=== PATIENT | female | born 1940 | race Caucasian/White ===

== ENCOUNTER 2020-01-29 13:24 | Outpatient (REF) | payer MEDICARE, SELFPAY ==
--- NOTE | 2020-01-29 13:46 | XR_ITS ---
EXAMINATION: XR CHEST CLINICAL INFORMATION: Dizziness and giddiness COMPARISON: None TECHNIQUE: 2 views of the chest were obtained. FINDINGS: The lungs are hyperexpanded. There is no focal consolidation, edema, or effusion. No pneumothorax. The cardiomediastinal silhouette is within normal limits. No acute osseous abnormality. IMPRESSION: Hyperexpanded, clear lungs.
[2020-01-29 14:54] LABS: MANUAL DIFF FLAG NO
[2020-01-29 14:58] LABS: Basophils Percent Auto 0.3 % (0-2); Eosinophils Percent Auto 0.1 % (0-4); Hematocrit 38.9 % (37-47); Hemoglobin 12.6 g/dl (12.0-16.0); Imm Gran Abs Auto 0.04 X10*3/uL (0.00-0.03); Imm Gran Pct Auto 0.4 % (0.0-0.4); Lymphocytes Percent Auto 10.2 % (20-40); Mean Corpuscular HGB Conc 32.4 g/dl (31.0-35.0); Mean Corpuscular Hemoglobin 29.1 pg (27.0-33.0); Mean Corpuscular Volume 89.8 fL (80-98); Mean Platelet Volume 10.8 fL (9.4-12.3); Monocytes Absolute Auto 0.5 X10*3/uL (0.1-1.2); Monocytes Percent Auto 5.7 % (2-11); Neutrophils Absolute Auto 7.8 X10*3/uL (2.0-8.3); Neutrophils Percent Auto 83.3 % (45-73); Platelet Count 246 X10*3/uL (160-400); Red Blood Count 4.33 X10*6/uL (4.20-5.50); Red Cell Distribution Width 12.7 % (11.0-16.0); White Blood Count 9.4 X10*3/uL (4.8-10.8)
[2020-01-29 15:48] LABS: TSH reflex Free T4 0.37 mIU/mL (0.32-4.0)
== END 2020-01-29 13:25 | disposition home or self-care (01) ==
LOC: HO.LAB 13:24
PROVIDERS: PCP Internal Medicine; Visit Provider Family Medicine
DX: R42 Dizziness and giddiness (principal)
CPT/HCPCS: 36415; 71046; 84443; 85025

== ENCOUNTER 2020-02-04 10:36 | Emergency (ER) | payer MEDICARE, SELFPAY ==
--- NOTE | 2020-02-04 | ECG_ITS ---
Test Reason : PALPITATIONS Blood Pressure : / mmHG Vent. Rate : 065 BPM Atrial Rate : 065 BPM P-R Int : 184 ms QRS Dur : 084 ms QT Int : 390 ms P-R-T Axes : 062 -33 058 degrees QTc Int : 405 ms Normal sinus rhythm Left axis deviation Otherwise normal ECG When compared with ECG of 15-NOV-2017 10:43, No significant change was found Referred By: Shayy Nguyen Electronically Signed By:NADEEM JUAN MD
[2020-02-04 10:45] VITALS: BP 131/55; PULSE 77; RESP 15; O2SAT 97; BMI 22.9
--- NOTE | 2020-02-04 11:11 | ED.ARRPALP ---
HPI - Arrhythmia/Palpitations General Chief Complaint: Arrhythmia/Palpitations Stated Complaint: heart palpitations Time Seen by Provider: 02/04/20 10:48 Source: patient Mode of arrival: ambulatory Limitations: no limitations History of Present Illness HPI narrative: 79 y/o female with history of palpitations dating back to 2018 s/p Holter monitor at that time and was diagnosed with PVC's, hx of anxiety on PRN ativan who presents with intermittent palpitations and episodic lightheadedness and LE weakness for the last 4 days. She has had these symptoms several times in the past. She recently saw her PCP at the beginning of the month and had a normal EKG and blood work. She states it feels like her heart is beating very fast at times. She feels lightheaded when she stands up too fast. She denies caffeine intake. She denies drugs or alcohol. She denies chest pain, SOB. Related Data Allergies Allergy/AdvReac Type Severity Reaction Status Date / Time No Known Allergies Allergy Unverified 01/01/20 18:27 Review of Systems Review of Systems: Constitutional: No Fever, No Chills ENT/Mouth: No sore throat, No Rhinorrhea, No Swallowing Difficulty Eyes: No Eye Pain, No Swelling, No Redness Cardiovascular: No Chest Pain, No SOB, No Orthopnea, No Edema, +palpitations Respiratory: No Cough, No Sputum, No Wheezing, No dyspnea Gastrointestinal: No Nausea, No Vomiting, No Diarrhea, No abdominal Pain, No Hematochezia, No Melena Genitourinary: No Dysuria, No Urinary Frequency, No Hematuria Musculoskeletal: No joint pain, No Myalgias Skin: No Skin Lesions, No rash Neuro: + LE Weakness, No Numbness, No Dizziness, No Headache Psych: + Anxiety/Panic, No Depression Heme/Lymph: No Bruising, No Lymphadenopathy Endocrine: No Polyuria, No Polydipsia PMFSH Past Medical History Attestation statement: The following information was validated with the patient. Medical History Breast cancer FHx: mastectomy History of palpitations Surgical History (Updated 02/04/20 @ 10:51 by Adam Schafer) H/O mastectomy Social History Social History Smoking Status: Never smoker Use of substances other than those prescribed or required for medical reasons: No Advance Directives: Yes Advance Directives Information Provided: Yes Advance Directives on File: No Physical Exam Vital Signs: Vital Signs: Vital Signs Temp Pulse Resp BP Pulse Ox 02/04/20 14:00 98.1 F 65 17 143/62 H 02/04/20 12:39 98.0 F 65 16 134/54 L 02/04/20 12:21 69 18 136/62 99 02/04/20 12:19 68 134/64 02/04/20 12:18 60 115/56 L 02/04/20 10:45 77 15 131/55 L 97 Body Mass Index 22.9 Appearance: Alert. Oriented X3. No acute distress. Eyes: Pupils equal, round and reactive to light. ENT: Pharynx normal. Neck: Normal inspection. Neck supple. CVS: Normal heart rate and rhythm. Pulses normal. Respiratory: No respiratory distress. Breath sounds normal. Abdomen: Soft and nontender. +BS x4 Skin: Skin warm and dry. Normal skin color. Normal skin turgor. No rashes. Extremities: No lower extremity edema. Neuro: Oriented X 3. No motor deficit. No sensory deficit. Course Course Course Narrative: 79 yo with history of palpitations, hx PVC's who presenting with recurrent symptoms of palpitations, weakness and lightheadedness. She had Holter monitor in 2018 showing PVC's. She is not on any cardiac medications, does not have a cardiologst. Reevaluation(s) Reevaluation #1: Orthostatic VS are negative. Reevaluation #2: Awaiting chemistry results, need to be repeated due to hemolysis. Troponin, BNP and Mg are normal. Reevaluation #3: Chemistry completed and unremarkable. No palpiations while in the ER. Her lightheadedness is gone. She has a planned Holter monitor on 02/15. Will refer to Cardiology for additional management. MDM - Arrhythmia/Palpitations Lab Data Result diagrams: 02/04/20 11:12 02/04/20 14:51 Labs: Lab Results 02/04/20 02/04/20 02/04/20 Range/Units 11:12 11:12 11:12 WBC 8.3 (4.8-10.8) X10*3/uL RBC 4.73 (4.20-5.50) X10*6/uL Hgb 13.6 (12.0-16.0) g/dl Hct 42.6 (37-47) % MCV 90.1 (80-98) fL MCH 28.8 (27.0-33.0) pg MCHC 31.9 (31.0-35.0) g/dl RDW 12.7 (11.0-16.0) % Plt Count 263 (160-400) X10*3/uL MPV 10.2 (9.4-12.3) fL Immature Gran % (Auto) 1.4 H (0.0-0.4) % Neut % (Auto) 77.1 H (45-73) % Lymph % (Auto) 13.4 L (20-40) % Dawson % (Auto) 6.6 (2-11) % Eos % (Auto) 0.7 (0-4) % Baso % (Auto) 0.8 (0-2) % Lymph # (Auto) 1.1 L (1.2-4.9) X10*3/uL Dawson # (Auto) 0.6 (0.1-1.2) X10*3/uL Eos # (Auto) 0.1 (0.0-0.4) X10*3/uL Baso # (Auto) 0.1 (0.0-0.2) X10*3/uL Abs Immat Gran (auto) 0.12 H (0.00-0.03) X10*3/uL Absolute Neuts (auto) 6.4 (2.0-8.3) X10*3/uL Absolute Nucleated RBC 0.000 (0.0-0.012) X10*3/uL Nucleated RBC % (auto) 0.0 (0.0-0.2) /100WBC Sodium (135-145) mmol/L Potassium (3.3-5.1) mmol/l Chloride (96-108) mmol/L Carbon Dioxide (22-29) mmol/L Anion Gap (12-20) BUN (9-16) mg/dL Creatinine (0.5-1.4) mg/dL Estim Creat Clear Calc Estimated GFR Random Glucose (60-115) mg/dL Calcium (8.4-10.2) mg/dL Magnesium 2.3 (1.6-2.6) mg/dL Total Bilirubin (0.0-1.0) mg/dL Direct Bilirubin (0.0-0.5) mg/dL AST (5-31) U/L ALT (0-31) U/L Alkaline Phosphatase (39-117) U/L Troponin I High Sens < 3.5 (<3.5-17.0) ng/L B-Natriuretic Peptide 24 (<100) pg/mL Total Protein (6.5-8.0) g/dL Albumin (3.5-5.0) g/dL TSH (0.32-4.0) mIU/mL 02/04/20 Range/Units 14:51 WBC (4.8-10.8) X10*3/uL RBC (4.20-5.50) X10*6/uL Hgb (12.0-16.0) g/dl Hct (37-47) % MCV (80-98) fL MCH (27.0-33.0) pg MCHC (31.0-35.0) g/dl RDW (11.0-16.0) % Plt Count (160-400) X10*3/uL MPV (9.4-12.3) fL Immature Gran % (Auto) (0.0-0.4) % Neut % (Auto) (45-73) % Lymph % (Auto) (20-40) % Dawson % (Auto) (2-11) % Eos % (Auto) (0-4) % Baso % (Auto) (0-2) % Lymph # (Auto) (1.2-4.9) X10*3/uL Dawson # (Auto) (0.1-1.2) X10*3/uL Eos # (Auto) (0.0-0.4) X10*3/uL Baso # (Auto) (0.0-0.2) X10*3/uL Abs Immat Gran (auto) (0.00-0.03) X10*3/uL Absolute Neuts (auto) (2.0-8.3) X10*3/uL Absolute Nucleated RBC (0.0-0.012) X10*3/uL Nucleated RBC % (auto) (0.0-0.2) /100WBC Sodium 133 L (135-145) mmol/L Potassium 4.5 (3.3-5.1) mmol/l Chloride 97 (96-108) mmol/L Carbon Dioxide 27 (22-29) mmol/L Anion Gap 14 (12-20) BUN 13 (9-16) mg/dL Creatinine 0.74 (0.5-1.4) mg/dL Estim Creat Clear Calc 54.5 Estimated GFR > 60 Random Glucose 140 H (60-115) mg/dL Calcium 8.9 (8.4-10.2) mg/dL Magnesium 2.3 (1.6-2.6) mg/dL Total Bilirubin 0.4 (0.0-1.0) mg/dL Direct Bilirubin 0.2 (0.0-0.5) mg/dL AST 14 (5-31) U/L ALT 13 (0-31) U/L Alkaline Phosphatase 61 (39-117) U/L Troponin I High Sens (<3.5-17.0) ng/L B-Natriuretic Peptide (<100) pg/mL Total Protein 7.1 (6.5-8.0) g/dL Albumin 4.1 (3.5-5.0) g/dL TSH 1.03 (0.32-4.0) mIU/mL ECG Data Attestation: I personally reviewed and interpreted this ECG as follows: ECG interpretation date: 02/04/20 ECG interpretation time: 11:10 Interpretation: normal sinus rhythm, HR 65, left axis deviation, normal [place] interval Discharge Plan Discharge Clinical Impression: Lightheadedness, Palpitations Patient Disposition: Home, Self-Care Instructions: Heart Palpitations (ED) Additional Instructions: Stay hydrated. Minimize caffiene intake. Follow up with your Primary Care Doctor this week. If your symptoms persist or worsen call 911 or come back to the ER for evaluation. If you develop shortness of breath or chest pain call 911 or come back to the ER for further evaluation. Referrals: Cuba Shaikh MD [Physician] - 2 days Interventions: ED Discharge Assessment Last Done: 02/04/20 15:46 Discharge Date/Time: 02/04/20 15:47
[2020-02-04 11:20] LABS: MANUAL DIFF FLAG NO
[2020-02-04 11:27] LABS: Basophils Absolute Auto 0.1 X10*3/uL (0.0-0.2); Basophils Percent Auto 0.8 % (0-2); Eosinophils Absolute Auto 0.1 X10*3/uL (0.0-0.4); Eosinophils Percent Auto 0.7 % (0-4); Hematocrit 42.6 % (37-47); Hemoglobin 13.6 g/dl (12.0-16.0); Imm Gran Abs Auto 0.12 X10*3/uL (0.00-0.03); Imm Gran Pct Auto 1.4 % (0.0-0.4); Lymphocytes Absolute Auto 1.1 X10*3/uL (1.2-4.9); Lymphocytes Percent Auto 13.4 % (20-40); Mean Corpuscular HGB Conc 31.9 g/dl (31.0-35.0); Mean Corpuscular Hemoglobin 28.8 pg (27.0-33.0); Mean Corpuscular Volume 90.1 fL (80-98); Mean Platelet Volume 10.2 fL (9.4-12.3); Monocytes Absolute Auto 0.6 X10*3/uL (0.1-1.2); Monocytes Percent Auto 6.6 % (2-11); Neutrophils Absolute Auto 6.4 X10*3/uL (2.0-8.3); Neutrophils Percent Auto 77.1 % (45-73); Platelet Count 263 X10*3/uL (160-400); Red Blood Count 4.73 X10*6/uL (4.20-5.50); Red Cell Distribution Width 12.7 % (11.0-16.0); White Blood Count 8.3 X10*3/uL (4.8-10.8)
[2020-02-04 11:44] LABS: Magnesium 2.3 mg/dL (1.6-2.6)
[2020-02-04 11:50] LABS: B Type Natriuretic Peptide 24 pg/mL (<100); Troponin-I High Sensitivity < 3.5 ng/L (<3.5-17.0)
[2020-02-04 12:18] VITALS: BP 115/56; PULSE 60
[2020-02-04 12:19] VITALS: BP 134/64; BP 136/62; PULSE 68; PULSE 69
[2020-02-04 12:21] VITALS: BP 136/62; PULSE 69; RESP 18; O2SAT 99
[2020-02-04 12:39] VITALS: BP 134/54; PULSE 65; RESP 16; TEMP 36.7
[2020-02-04 14:00] VITALS: BP 143/62; PULSE 65; RESP 17; TEMP 36.7
[2020-02-04 15:04] LABS: Alanine Aminotransferase 13 U/L (0-31); Albumin Level 4.1 g/dL (3.5-5.0); Alkaline Phosphatase 61 U/L (39-117); Anion Gap 14 (12-20); Aspartate Amino Transferase 14 U/L (5-31); Bilirubin Direct 0.2 mg/dL (0.0-0.5); Bilirubin Total 0.4 mg/dL (0.0-1.0); Blood Urea Nitrogen 13 mg/dL (9-16); Calcium 8.9 mg/dL (8.4-10.2); Carbon Dioxide 27 mmol/L (22-29); Chloride 97 mmol/L (96-108); Creatinine Clr Calc Pharmacy 54.5; Estimated Glomerular Filt Rate > 60; Glucose Random 140 mg/dL (60-115); Magnesium 2.3 mg/dL (1.6-2.6); Potassium 4.5 mmol/l (3.3-5.1); Sodium 133 mmol/L (135-145); Total Protein 7.1 g/dL (6.5-8.0)
[2020-02-04 15:24] LABS: TSH reflex Free T4 1.03 mIU/mL (0.32-4.0)
== END 2020-02-04 15:47 | disposition home or self-care (01) ==
PROVIDERS: Physician Assistant; Emergency Provider Emergency Medicine; PCP Internal Medicine
DX: R00.2 Palpitations (principal); R42 Dizziness and giddiness; Z85.3 Personal history of malignant neoplasm of breast
CPT/HCPCS: 36415; 80048; 80076; 83735; 83880; 84443; 84484; 85025; 93005; 99283; 99284

== ENCOUNTER → 2020-02-16 13:52 | Outpatient (REF) | payer MEDICARE, SELFPAY ==
--- NOTE | 2020-02-16 14:21 | ECG_ITS ---
Hook-up date: 2020-02-16 15:35:00 Duration: 24:34:00 Test Indications: DIZZINESS Medications: 218013 QRS complexes 42 Ventricular ectopics which represent <1 % of total QRS comp. 1719 Supraventricular ectopics which represent 1 % of total QRS comp. * Paced QRS complexs which represent % of total QRS comp. VENTRICULAR ECTOPY 33 Isolated 0 Bigeminal Cycles 3 Couplets 1 Runs 3 Beats in Runs 3 Beats LONGEST at 97 BPM at 13:21:17 2020-02-17 3 Beats FASTEST at 97 BPM at 13:21:17 2020-02-17 SUPRAVENTRICULAR ECTOPY 1659 Isolated 22 Couplets 4 Runs 16 Beats in Runs 7 Beats LONGEST at 115 BPM at 13:23:39 2020-02-17 3 Beats FASTEST at 116 BPM at 13:23:48 2020-02-17 HEART RATES 55 MIN at 21:33:06 2020-02-16 70 AVG 127 MAX at 08:18:07 2020-02-17 LONGEST RR 1.9840 secs at 20:46:03 2020-02-16 S-T LEVELS Channel 1 - 128 mm at 15:35:00 2020-02-16 - 128 mm at 15:35:00 2020-02-16 Channel 2 - 128 mm at 15:35:00 2020-02-16 - 128 mm at 15:35:00 2020-02-16 Channel 3 - 128 mm at 03:45:41 -- - 128 mm at 03:45:41 Underlying rhythm is sinus; Average ventricular rate 70/min; range 55-127/min; Occasional supraventricular ectopy- about 1700 over 24 Hrs; mostly isolated; longest run 7 beats; Rare ventricular ectopy; 1 run of 3 beats at 97/min; No clear correlation between patient symptoms and holter findings. Referred By: Ludwin Ovalle Overread By: JESUS SALCIDO
== END ==
LOC: HO.CARD 13:52
PROVIDERS: PCP Internal Medicine; Visit Provider Family Medicine
DX: R42 Dizziness and giddiness (principal); Z87.898 Personal history of other specified conditions
CPT/HCPCS: 93226

== ENCOUNTER 2020-08-05 07:08 | Outpatient (REF) | payer MEDICARE, SELFPAY ==
[2020-08-05 08:09] LABS: MANUAL DIFF FLAG NO
[2020-08-05 08:13] LABS: Basophils Absolute Auto 0.1 X10*3/uL (0.0-0.2); Basophils Percent Auto 1.5 % (0-2); Eosinophils Absolute Auto 0.3 X10*3/uL (0.0-0.4); Eosinophils Percent Auto 5.2 % (0-4); Hematocrit 40.6 % (37-47); Hemoglobin 13.1 g/dl (12.0-16.0); Imm Gran Abs Auto 0.02 X10*3/uL (0.00-0.03); Imm Gran Pct Auto 0.4 % (0.0-0.4); Lymphocytes Absolute Auto 1.1 X10*3/uL (1.2-4.9); Lymphocytes Percent Auto 23.2 % (20-40); Mean Corpuscular HGB Conc 32.3 g/dl (31.0-35.0); Mean Corpuscular Hemoglobin 28.6 pg (27.0-33.0); Mean Corpuscular Volume 88.6 fL (80-98); Mean Platelet Volume 10.7 fL (9.4-12.3); Monocytes Absolute Auto 0.4 X10*3/uL (0.1-1.2); Monocytes Percent Auto 7.5 % (2-11); Neutrophils Percent Auto 62.2 % (45-73); Platelet Count 219 X10*3/uL (160-400); Red Blood Count 4.58 X10*6/uL (4.20-5.50); Red Cell Distribution Width 12.6 % (11.0-16.0); White Blood Count 4.8 X10*3/uL (4.8-10.8)
[2020-08-05 08:37] LABS: Alanine Aminotransferase 13 U/L (0-31); Albumin Level 4.2 g/dL (3.5-5.0); Alkaline Phosphatase 59 U/L (39-117); Anion Gap 12 (12-20); Aspartate Amino Transferase 16 U/L (5-31); Bilirubin Total 0.9 mg/dL (0.0-1.0); Blood Urea Nitrogen 15 mg/dL (9-16); Carbon Dioxide 26 mmol/L (22-29); Chloride 102 mmol/L (96-108); Cholesterol 203 mg/dL; Estimated Glomerular Filt Rate > 60; Glucose Fasting 107 mg/dL (60-99); HDL Cholesterol 63 mg/dL; LDL Cholesterol Calculated 124 mg/dl; Potassium 4.1 mmol/L (3.3-5.1); Sodium 136 mmol/L (135-145); Total Protein 6.9 g/dL (6.5-8.0); Triglycerides 83 mg/dL
== END 2020-08-05 07:09 | disposition home or self-care (01) ==
LOC: HO.LAB 07:08
PROVIDERS: PCP Internal Medicine; Visit Provider Nurse Practitioner Family
DX: K21.9 Gastro-esophageal reflux disease without esophagitis (principal)
CPT/HCPCS: 36415; 80053; 80061; 85025

== ENCOUNTER 2021-03-21 10:35 | Outpatient (REF) | payer MEDICARE, SELFPAY ==
[2021-03-21 11:52] LABS: Hematocrit 40.1 % (37.0-47.0); Hemoglobin 12.9 g/dl (12.0-16.0); Mean Corpuscular HGB Conc 32.2 g/dl (31.0-35.0); Mean Corpuscular Hemoglobin 28.9 pg (27.0-33.0); Mean Corpuscular Volume 89.7 fL (80.0-98.0); Mean Platelet Volume 10.8 fL (9.4-12.3); Platelet Count 218 X10*3/uL (160-400); Red Blood Count 4.47 X10*6/uL (4.20-5.50); Red Cell Distribution Width 12.5 % (11.0-16.0); White Blood Count 5.2 X10*3/uL (4.8-10.8)
[2021-03-21 12:21] LABS: Lipase 42 U/L (8-78)
== END 2021-03-21 10:36 | disposition home or self-care (01) ==
LOC: HO.LAB 10:35
PROVIDERS: PCP Internal Medicine; Visit Provider Physician Assistant
DX: R10.13 Epigastric pain (principal)
CPT/HCPCS: 36415; 83690; 85027

== ENCOUNTER 2021-03-22 12:08 | Outpatient (REF) | payer MEDICARE, SELFPAY | END 2021-03-22 12:09 | disposition home or self-care (01) | LOC: HO.LNP 12:08 | PROVIDERS: Visit Provider Physician Assistant | DX: R10.13 Epigastric pain (principal) | CPT/HCPCS: 87338 ==

== ENCOUNTER 2021-05-27 15:24 | Outpatient (REF) | payer MEDICARE, SELFPAY ==
--- NOTE | ~2021-05-27 | US_ITS ---
EXAMINATION: US EXTRACRANIAL CAROTID DUPLEX, BILATERAL CLINICAL INFORMATION: Carotid bruit COMPARISON: None TECHNIQUE: Real-time ultrasound and Doppler techniques (integrating B-mode 2-D vascular images, Doppler spectral analysis and color-flow Doppler imaging) were utilized to interrogate the extracranial carotid arteries, the vertebral arteries and proximal subclavian arteries bilaterally. The degree of stenosis is determined by criteria similar to NASCET. FINDINGS: Right Side: 1. There is atherosclerotic plaque seen in the bifurcation/proximal ICA region. 2. The common carotid artery PSV proximally is 116 cm/s and distally 120 cm/s. 3. The proximal internal carotid artery velocities are 152 cm/s systolic and 26.2 cm/s diastolic. 4. The proximal external carotid artery PSV is 82.1 cm/s. 5. The vertebral artery shows antegrade flow. 6. The subclavian artery waveforms are normal. Left Side: 1. There is atherosclerotic plaque seen in the bifurcation/proximal ICA region. 2. The common carotid artery PSV proximally is 99.7 cm/s and distally 80.9 cm/s. 3. The proximal internal carotid artery velocities are 229 cm/s systolic and 56.6 cm/s diastolic. 4. The proximal external carotid artery PSV is 186 cm/s. 5. The vertebral artery shows antegrade flow. 6. The subclavian artery waveforms are normal. US/US carotid duplex BI IMPRESSION: 1. RIGHT: Minimal, non-hemodynamically significant stenosis of the proximal right internal carotid artery corresponding to a 0-49% stenosis by velocity criteria. 2. LEFT: Moderate, hemodynamically significant stenosis of the proximal left internal carotid artery corresponding to a 50-79% stenosis by velocity criteria.
== END 2021-05-27 15:25 | disposition home or self-care (01) ==
LOC: HO.US 15:24
PROVIDERS: PCP Internal Medicine; Visit Provider Physician Assistant
DX: R09.89 Other specified symptoms and signs involving the circulatory and respiratory systems (principal)
CPT/HCPCS: 93880

== ENCOUNTER 2021-08-05 07:31 | Outpatient (REF) | payer MEDICARE, SELFPAY ==
[2021-08-05 07:49] LABS: Hematocrit 40.5 % (37.0-47.0); Hemoglobin 12.9 g/dl (12.0-16.0); Mean Corpuscular HGB Conc 31.9 g/dl (31.0-35.0); Mean Corpuscular Hemoglobin 27.9 pg (27.0-33.0); Mean Corpuscular Volume 87.7 fL (80.0-98.0); Mean Platelet Volume 10.3 fL (9.4-12.3); Platelet Count 197 X10*3/uL (160-400); Red Blood Count 4.62 X10*6/uL (4.20-5.50); Red Cell Distribution Width 13.2 % (11.0-16.0); White Blood Count 4.3 X10*3/uL (4.8-10.8)
[2021-08-05 08:22] LABS: Estimated Average Glucose 103 mg/dL; Hemoglobin A1c % 5.2 %
[2021-08-05 08:27] LABS: Alanine Aminotransferase 10 U/L (0-31); Albumin Level 3.9 g/dL (3.5-5.0); Alkaline Phosphatase 59 U/L (39-117); Anion Gap 8 (12-20); Aspartate Amino Transferase 14 U/L (5-31); Bilirubin Total 0.6 mg/dL (0.0-1.0); Blood Urea Nitrogen 10 mg/dL (9-16); Carbon Dioxide 28 mmol/L (22-29); Chloride 103 mmol/L (96-108); Cholesterol 180 mg/dL; Estimated Glomerular Filt Rate > 60; Glucose Fasting 100 mg/dL (60-99); HDL Cholesterol 55 mg/dL; LDL Cholesterol Calculated 109 mg/dl; Sodium 135 mmol/L (135-145); Total Protein 6.5 g/dL (6.5-8.0); Triglycerides 84 mg/dL
== END 2021-08-05 07:32 | disposition home or self-care (01) ==
LOC: HO.LAB 07:31
PROVIDERS: PCP Internal Medicine; Visit Provider Physician Assistant
DX: Z13.1 Encounter for screening for diabetes mellitus (principal); Z13.220 Encounter for screening for lipoid disorders; I65.22 Occlusion and stenosis of left carotid artery
CPT/HCPCS: 36415; 80053; 80061; 83036; 85027

== ENCOUNTER → 2021-08-22 08:50 | Outpatient (BNVA) | payer MEDICARE, SELFPAY | PROVIDERS: PCP Internal Medicine; Visit Provider Surgery Vascular Surgery | DX: I65.23 Occlusion and stenosis of bilateral carotid arteries (principal) | CPT/HCPCS: 99202 ==

== ENCOUNTER 2021-10-20 11:20 | Outpatient (REF) | payer MEDICARE, SELFPAY ==
[2021-10-20 12:37] LABS: Hematocrit 38.2 % (37.0-47.0); Hemoglobin 12.6 g/dl (12.0-16.0); Mean Corpuscular Hemoglobin 29.4 pg (27.0-33.0); Mean Platelet Volume 10.4 fL (9.4-12.3); Platelet Count 214 X10*3/uL (160-400); Red Blood Count 4.29 X10*6/uL (4.20-5.50); Red Cell Distribution Width 13.4 % (11.0-16.0); White Blood Count 5.9 X10*3/uL (4.8-10.8)
[2021-10-20 13:25] LABS: TSH reflex Free T4 0.58 uIU/mL (0.32-4.0)
== END 2021-10-20 11:21 | disposition home or self-care (01) ==
LOC: HO.LAB 11:20
PROVIDERS: PCP Internal Medicine; Visit Provider Nurse Practitioner Family
DX: R00.2 Palpitations (principal)
CPT/HCPCS: 36415; 84443; 85027

== ENCOUNTER → 2021-10-26 07:30 | Outpatient (REF) | payer MEDICARE, SELFPAY ==
--- NOTE | 2021-10-26 07:32 | HM_ITS ---
Conclusion: 1. Patient was monitor for total period of 4 days and 23 hours 2. Baseline was normal sinus rhythm with average heart of 60 beats per minute 3. No significant pauses or bradycardia noted 4. Fourteen short episodes of symptomatic tachycardia, longest 42 beats per minute and fastest 161 beats per minute 5. Total of 696 PACs accounting for 0.14% of total beats accounting for occasional PACs 6. No patient reported events MTDD
== END ==
LOC: HO.CARD 07:30
PROVIDERS: Visit Provider Nurse Practitioner Family
DX: R00.2 Palpitations (principal)
CPT/HCPCS: 93242

== ENCOUNTER 2021-11-28 09:47 | Outpatient (REF) | payer MEDICARE, SELFPAY ==
--- NOTE | ~2021-11-28 | US_ITS ---
EXAMINATION: US EXTRACRANIAL CAROTID DUPLEX, BILATERAL CLINICAL INFORMATION: Bilateral carotid artery stenosis. COMPARISON: Carotid artery ultrasound on 05/27/2021 TECHNIQUE: Real-time ultrasound and Doppler techniques (integrating B-mode 2-D vascular images, Doppler spectral analysis and color-flow Doppler imaging) were utilized to interrogate the extracranial carotid arteries, the vertebral arteries and proximal subclavian arteries bilaterally. The degree of stenosis is determined by criteria similar to NASCET. FINDINGS: Right Side: 1. There is mild atherosclerotic plaque seen in the bifurcation/proximal ICA region. 2. The common carotid artery PSV proximally is 94 cm/s and distally 76 cm/s. 3. The proximal internal carotid artery velocities are 75 cm/s systolic and 18 cm/s diastolic. 4. The proximal external carotid artery PSV is 88 cm/s. 5. The vertebral artery shows antegrade flow. 6. The subclavian artery waveforms are normal. Left Side: 1. There is mild atherosclerotic plaque seen in the bifurcation/proximal ICA region. 2. The common carotid artery PSV proximally is 75 cm/s and distally 70 cm/s. 3. The proximal internal carotid artery velocities are 50 cm/s systolic and 15 cm/s diastolic. 4. The proximal external carotid artery PSV is 70 cm/s. 5. The vertebral artery shows antegrade flow. 6. The subclavian artery waveforms are normal. US/US carotid duplex BI IMPRESSION: 1. RIGHT: Minimal, non-hemodynamically significant stenosis of the proximal right internal carotid artery corresponding to a 0-49% stenosis by velocity criteria. This is stable from the comparison examination in May. 2. LEFT: Minimal, non-hemodynamically significant stenosis of the proximal left internal carotid artery corresponding to a 0-49% stenosis by velocity criteria. The category of disease appears decreased from the comparison in May (previously measured at 50-79% stenosis).
== END 2021-11-28 09:48 | disposition home or self-care (01) ==
LOC: HO.US 09:47
PROVIDERS: Visit Provider Surgery Vascular Surgery
DX: I65.23 Occlusion and stenosis of bilateral carotid arteries (principal)
CPT/HCPCS: 93880

== ENCOUNTER → 2021-12-01 09:52 | Outpatient (BNVA) | payer MEDICARE, SELFPAY | PROVIDERS: PCP Internal Medicine; Visit Provider Surgery Vascular Surgery | DX: I65.23 Occlusion and stenosis of bilateral carotid arteries (principal) | CPT/HCPCS: 99212 ==

== ENCOUNTER → 2022-02-24 09:54 | Outpatient (BNVA) | payer MEDICARE, SELFPAY | PROVIDERS: PCP Internal Medicine; Referring Provider Internal Medicine; Visit Provider Internal Medicine Cardiovascular Disease | DX: I47.1 Supraventricular tachycardia (principal); F41.9 Anxiety disorder, unspecified | CPT/HCPCS: 99202 ==

== ENCOUNTER → 2022-04-21 09:21 | Outpatient (REF) | payer MEDICARE, SELFPAY ==
--- NOTE | 2022-04-21 09:23 | CA_ITS ---
Transthoracic Echocardiogram Patient (Last, First, Middle): Mary Beth Jaramillo P Gender: Female Date of : 1940 Age: 81 Procedure Date: 04/21/2022 Procedure Type: Transthoracic Echocardiogram Location: OP Height: 165.1 cm Weight: 58.97 kg BSA: 1.65 m2 Heart Rate: 59 bpm BP: 145 / 75 mmHg Cremator: MI Referring MD: Leslee Torres MD Symptoms: I47.1 - Supraventricular tachycardia Study Quality: Fair ECG Rhythm: Sinus Conclusions: - The left ventricular systolic function is normal. The calculated ejection fraction is 55% by biplane method. - No obvious valvular pathology seen on this study. Findings Left Ventricle Normal left ventricular cavity size. There is normal left ventricular wall thickness. The left ventricular systolic function is normal. The calculated ejection fraction is 55% by biplane method. There is no evidence of regional wall motion abnormalities. Diastolic function is normal for age. Right Ventricle Normal right ventricular cavity size and systolic function. Atria Both atria are normal in size. Aortic Valve There is a normal trileaflet aortic valve. There is no aortic valve stenosis. There is no aortic valve regurgitation. Mitral Valve The mitral valve appears normal. There is trace mitral valve regurgitation. There is no mitral valve stenosis. Pulmonic Valve There is mild pulmonic valve regurgitation. Tricuspid Valve Normal tricuspid valve structure. There is trace tricuspid valve regurgitation. There is no evidence of pulmonary hypertension. Great Vessels The asc aorta is normal in size. Venous The inferior vena cava is normal in size and collapses greater than 50% with inspiration. Pericardium/Pleural There is no evidence of pericardial effusion. Prior Study Comparison No prior study available for comparison. Recommendations, Care & Conclusions No obvious valvular pathology seen on this study. Measurements 2D Linear Measurements IVSd: 0.74 0.6-0.9/0.6-1.0 cm LVIDd: 4.26 3.9-5.3/4.2-5.9 cm LVIDd Index: 2.58 2.4-3.2/2.2-3.1 cm/m2 LVIDs: 2.96 2.0-3.6 cm LVPWd: 0.78 0.7-1.1 cm LA Diam: 3.50 2.7-3.8/3.0-4.0 cm LAIDs Index: 2.12 1.5-2.3 cm/m2 LV Mass: 120.32 67-162/88-224 g LV Mass Index: 72.92 43-95/49-115 g/m2 LVOT Diam: 1.90 3.0+(-)1.3 cm 2D Systolic Function EF 4C: 57.00 >55% EF 2C: 53.90 >55% EF BiP: 55.00 >55% Mitral Valve MV Pk E: 0.79 MV PK A: 0.67 MV Decel Time: 188.00 E/A: 1.20 E'Lateral: 9.03 E'Medial: 7.62 E/E' Med: 10.40 E/E' Lat: 8.80 PHT: 55.00 MVA PHT: 4.00 Decel [place]: 4.22 Aortic Valve AoV Pk Fer: 0.97 AoV Mn Fer: 0.65 AoV VTI: 0.22 AoV Pk Grad: 4.00 Aov Mn Grad: 2.00 ANSELMO Cont.VTI: 2.55 LVOT LVOT Pk Fer: 0.82 LVOT Mn Fer: 0.56 LVOT VTI: 0.20 LVOT Pk Grad: 3.00 LVOT Mn Grad: 1.00 LVOT Diam: 1.90 LVOT Area: 2.84 Diastolic Function MV Pk E: 0.79 MV Pk A: 0.67 E/A: 1.20 E'Medial: 7.62 E/E' Med: 10.40 E' Laterial: 9.03 E/E' Lat: 8.80 Right Ventricle TAPSE (mm): 23.80 TVS' Fer: 12.30 Tricuspid Valve TR Pk Fer: 1.84 TR Pk Grad: 14.00 RA Press: 3.00 RVSP: 17.00 Great Vessels Aorta Sinus of Valsalva: 3.50 2.0-3.5 cm Ao Asc: 3.10 2.1-3.4 cm Pulmonary Valve PV Pk Fer: 0.87 Peak PV Grad: 3.00 Updated in Other Vendor System with Status of Final Santo Escobedo MD electronically signed on 04/22/2022 2:29:58 PM with status of Final
== END ==
LOC: HO.CARD 09:21
PROVIDERS: Visit Provider Internal Medicine
DX: I47.1 Supraventricular tachycardia (principal); R01.1 Cardiac murmur, unspecified
CPT/HCPCS: 93306

== ENCOUNTER → 2022-09-20 11:02 | Outpatient (BNVA) | payer MEDICARE, SELFPAY | PROVIDERS: PCP Internal Medicine; Referring Provider Internal Medicine; Visit Provider Internal Medicine Cardiovascular Disease | DX: I47.1 Supraventricular tachycardia (principal); I65.23 Occlusion and stenosis of bilateral carotid arteries | CPT/HCPCS: 93005; 99212 ==

== ENCOUNTER 2022-09-25 07:57 | Outpatient (REF) | payer OTHER, SELFPAY ==
[2022-09-25 08:12] LABS: MANUAL DIFF FLAG NO
[2022-09-25 08:24] LABS: Basophils Absolute Auto 0.1 X10*3/uL (0.0-0.2); Basophils Percent Auto 1.5 % (0-2); Eosinophils Absolute Auto 0.2 X10*3/uL (0.0-0.4); Eosinophils Percent Auto 4.4 % (0-4); Hematocrit 41.4 % (37.0-47.0); Hemoglobin 13.2 g/dl (12.0-16.0); Imm Gran Abs Auto 0.02 X10*3/uL (0.00-0.03); Imm Gran Pct Auto 0.4 % (0.0-0.4); Lymphocytes Absolute Auto 1.1 X10*3/uL (1.2-4.9); Lymphocytes Percent Auto 22.2 % (20-40); Mean Corpuscular HGB Conc 31.9 g/dl (31.0-35.0); Mean Corpuscular Hemoglobin 28.9 pg (27.0-33.0); Mean Corpuscular Volume 90.8 fL (80.0-98.0); Monocytes Absolute Auto 0.4 X10*3/uL (0.1-1.2); Monocytes Percent Auto 9.1 % (2-11); Neutrophils Percent Auto 62.4 % (45-73); Platelet Count 208 X10*3/uL (160-400); Red Blood Count 4.56 X10*6/uL (4.20-5.50); Red Cell Distribution Width 12.7 % (11.0-16.0); White Blood Count 4.7 X10*3/uL (4.8-10.8)
[2022-09-25 09:11] LABS: Alanine Aminotransferase 11 U/L (0-31); Albumin Level 3.9 g/dL (3.5-5.0); Alkaline Phosphatase 55 U/L (39-117); Anion Gap 9 (12-20); Aspartate Amino Transferase 16 U/L (5-31); Bilirubin Total 0.8 mg/dL (0.0-1.0); Blood Urea Nitrogen 12 mg/dL (9-16); Calcium 9.1 mg/dL (8.4-10.2); Carbon Dioxide 31 mmol/L (22-29); Chloride 101 mmol/L (96-108); Cholesterol 186 mg/dL; Estimated Glomerular Filt Rate > 60; Glucose Fasting 94 mg/dL (60-99); HDL Cholesterol 70 mg/dL; LDL Cholesterol Calculated 101 mg/dl; Potassium 4.5 mmol/L (3.3-5.1); Sodium 136 mmol/L (135-145); Total Protein 6.5 g/dL (6.5-8.0); Triglycerides 76 mg/dL
[2022-09-25 10:07] LABS: Folate 14.9 ng/mL (> or = 4.0); TSH reflex Free T4 1.35 uIU/mL (0.32-4.0); Vitamin B12 399 pg/mL (200-900); Vitamin D 25-OH Total 30.5 ng/mL (>30)
== END 2022-09-25 07:58 | disposition home or self-care (01) ==
LOC: HO.LAB 07:57
PROVIDERS: PCP Internal Medicine; Visit Provider Nurse Practitioner Family
DX: Z00.00 Encounter for general adult medical examination without abnormal findings (principal); Z13.220 Encounter for screening for lipoid disorders; Z13.1 Encounter for screening for diabetes mellitus; Z20.2 Contact with and (suspected) exposure to infections with a predominantly sexual mode of transmission; I47.1 Supraventricular tachycardia; R00.2 Palpitations; K21.9 Gastro-esophageal reflux disease without esophagitis; G43.109 Migraine with aura, not intractable, without status migrainosus
CPT/HCPCS: 36415; 80053; 80061; 82306; 82607; 82746; 84443; 85025

== ENCOUNTER 2022-09-29 10:26 | Outpatient (REF) | payer OTHER, SELFPAY ==
--- NOTE | ~2022-09-29 | MM_ITS ---
EXAMINATION: BONE DENSITOMETRY CLINICAL INDICATION: Asymptomatic menopausal state. COMPARISON: None (current study represents initial baseline exam). TECHNIQUE: Using a [employer] DXA System (software version: 13.1) manufactured by [employer], dual-energy x-ray absorptiometry was performed of the lumbar spine and left hip. The images are of good technical quality. Summary results are attached. FINDINGS: AP SPINE L1-L4: BMD 1.058 g/cm2, Z-score 1.0, T-score -1.0, normal. LEFT FEMUR, NECK: BMD 0.777 g/cm2, Z-score 0.5, T-score -1.9, osteopenia. LEFT FEMUR, TOTAL: BMD 0.782 g/cm2, Z-score 0.5, T-score -1.8, osteopenia. IDENTIFIED RISK FACTORS: Menopause, history of fracture (adult). HISTORY OF FRACTURE: Clavicle, foot. MEDICATIONS: Calcium. MM/XR DEXA axial skeleton IMPRESSION: 1. DIAGNOSIS: Osteopenia based on the lowest T-score value of -1.9 in the femoral neck applying World Health Organization criteria. 2. 10-YEAR FRACTURE RISK PREDICTION, FRAX: Major osteoporotic fracture (clinical spine, forearm, hip or shoulder) 20.1%. Hip fracture 5.8%. 3. Treatment Recommendations: NOF guidelines recommend consideration for treatment in postmenopausal women and men age 50 and older presenting with the following: -A hip or vertebral (clinical or morphometric) fracture. -T-score less than or equal to -2.5 at the femoral neck or spine after appropriate evaluation to exclude secondary causes. -Low bone mass at the hip or spine and a 10-year fracture probability by FRAX of greater than or equal to 3% for hip fracture or greater than or equal to 20% for major osteoporotic fracture based on the [place] adapted WHO algorithm. 4. Other Recommendations: All treatment decisions require clinical judgment and consideration of individual patient factors, including patient preferences, comorbidities, previous drug use, risk factors not captured in the FRAX model (e.g. frailty, falls, vitamin D deficiency, increased bone turnover, interval significant decline in bone density) and possible under or overestimation of fracture risk by FRAX. Additional medical evaluation for secondary cause of low bone mineral density may be appropriate. FUTURE SCAN RECOMMENDATION: People with diagnosed cases of osteoporosis or at high risk for fracture should have regular bone mineral density tests. For patients eligible for Medicare, routine testing is allowed once every 2 years. The testing frequency can be increased to one year for patients who have rapidly progressing disease, those who are receiving or discontinuing medical therapy to restore bone mass, or have additional risk factors.
== END 2022-09-29 10:27 | disposition home or self-care (01) ==
LOC: HO.MAMMO 10:26
PROVIDERS: PCP Internal Medicine; Visit Provider Nurse Practitioner Family
DX: Z13.820 Encounter for screening for osteoporosis (principal); Z78.0 Asymptomatic menopausal state
CPT/HCPCS: 77080

== ENCOUNTER 2023-02-13 15:48 | Outpatient (AMB) | payer OTHER, SELFPAY ==
--- NOTE | 2023-02-13 15:52 | A.OFFPC_ITS ---
Vital Signs 02/13/23 15:54 Height 5 ft 3.39 in Weight 137 lb 6 oz BMI 24.0 BP 150/70 H Blood Pressure Location Rt brachial Position Sitting Pulse 67 Pulse Source Pulse Oximeter Pulse Oximetry (%) 97 Oxygen Delivery Method Room Air Intake Visit Reasons: BLE weakness Intake Note: Patient has presented with bilateral leg weakness persisting for the past 2-3 months. The patient also reports experiencing shortness of breath (SOB) and has a history of anxiety. Additionally, the patient feels fatigued when sleeping. 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 Operator Required: No Accompanied by: Self / Same As Patient Allergies No Known Allergies Allergy (Verified 02/13/23 16:20) Medication List - Last Reconciled 02/13/23 by Hong Arellano PA-C aspirin (Adult Aspirin Regimen) 81 mg PO DAILY calcium carbonate-vitamin D3 600 mg-10 mcg (400 unit) 1 tab PO DAILY 90 days citalopram 10 mg PO DAILY 90 days lorazepam 0.5 mg PO BID PRN 30 days sumatriptan succinate 50 mg PO ONCE PRN 30 days Tobacco use date assessed: 09/20/22 Fall risk assessment: No Falls in past year Last assessed Fall Risk: 02/13/23 Dental Screening Dental Screen Date: 02/13/23 Did you have a dental visit in the last 12 months?: Yes Did you have a dental problem in the last 6 months where you did not have access to dental care?: No Was dental information given to patient?: Patient has dentist HPI BLE weakness HPI Details Patient is an 82-year-old female with a past medical history significant for generalized anxiety disorder, GERD and migraines. She reports over last 2 months having feelings of unsteadiness on her feet, fatigue, increased anxiety, some shortness of breath and lightheadedness. She has had this in the past to which it was found to be her anxiety. She has had workup with Cardiology in the past for possible cardiac etiology though all testing was negative. She reports she has been taking lorazepam on a daily basis over the last few days. She reports lorazepam does work temporarily. She continues on Celexa 10 mg as well. She did not speak with a mental health therapist at this time. [facility] Medical History Basal cell carcinoma Breast cancer Encounter for Medicare annual wellness exam FHx: mastectomy GERD (gastroesophageal reflux disease) History of palpitations Migraine headache Surgical History Basal cell carcinoma (BCC) in situ of skin History of cataract surgery H/O mastectomy Family History Father No problems noted. Mother Cancer Social History Housing: House Alcohol intake: never Patient Tobacco Use Status: Never used Tobacco e-Cigarette/Vaping Use: Never Used Second Hand Smoke Exposure: No service: No Current occupational status: retired Cognitive needs: No Hearing needs: Yes Vision needs: Yes Questionnaire Thrive Questionnaire Date Thrive assessed: 09/20/22 SINDY-7 AMB Questionnaire SINDY-7 Date SINDY - 7 assessed: 09/20/22 Source: Developed by Drs. Reed Elmore, Courtney Rodriguez, Panda Clayton and colleagues, with an educational shaniqua from [employer]. Review of Systems Const Denies headache(s) Eyes Denies loss of vision ENT Denies vertigo, Reports dizziness, Denies headache(s) and Denies sore throat Card Denies chest pain, Denies leg edema and Denies lightheadedness Resp Denies cough, Denies hemoptysis and Denies wheezing GI Denies abdominal pain, Denies melena, Denies constipation, Denies diarrhea and Denies vomiting Denies urinary frequency, Denies dysuria and Denies urinary urgency Musc Denies arthralgias, Denies joint swelling, Denies numbness and Denies tingling Neuro Denies Abnormal speech present, Denies behavioral changes, Denies vertigo, Reports dizziness, Denies headache(s), Denies loss of vision, Denies memory loss, Denies numbness and Denies tingling Psych Reports anxiety, Denies behavioral changes, Denies depression, Denies memory loss and Denies panic attacks Albaro/Lymph Denies easy bleeding and Denies easy bruising Aller/Immun Denies wheezing Physical exam (Primary Care) Vital Signs: Last Vital Signs Pulse 67 02/13/23 15:54 BP 150/70 H 02/13/23 15:54 Pulse Ox 97 02/13/23 15:54 Oxygen Delivery Method Room Air 02/13/23 15:54 BMI result Body Mass Index 24.0 Tobacco/Smoking Status: Tobacco use Status Tobacco use date assessed 09/20/22 02/13/23 15:53 Patient Tobacco Use Status Never used Tobacco 02/13/23 15:53 Tobacco use type 02/20/22 10:26 e-Cigarette/Vaping Use Never Used 02/13/23 15:53 Thrive Assessment: Date of Thrive Assessment Date Thrive assessed 09/20/22 02/13/23 15:53 Const General: healthy appearing, no acute distress, alert and awake Nutritional Appearance: well nourished Orientation/consciousness: oriented to person, oriented to place and oriented to time HENMT Ears: TM's normal bilaterally General nose exam: Normal nasal mucous membranes and turbinates present Eyes Conjunctivae: conjunctivae normal Sclerae: sclerae normal Pupils: Equal, round and reactive pupils present Neck Neck: Yes no lymphadenopathy and Yes no JVD Thyroid: Thyroid normal Carotids: no bruits Resp Effort & Inspection: normal respiratory effort and not tachypneic Auscultation: no crackles, no rales, no rhonchi and no wheezes Cardio Rate: regular rate Rhythm: regular rhythm Heart sounds: no murmurs and normal S1 and S2 GI Palpation (GI): Soft to palpation, nontender, no hepatomegaly and no splenomegaly Auscultation: normal bowel sounds Skin General skin exam: no rashes or lesions noted and dry skin Neuro General: oriented to person, oriented to place and oriented to time Cranial nerves: Yes Equal, round and reactive pupils present Speech: No Abnormal speech present Gait exam (Neuro): Normal gait present Motor exam (neuro): no tremor noted Extrem Right upper extremity: full ROM Left upper extremity: full ROM Right lower extremity: full ROM; no edema Left lower extremity: full ROM; no edema Psych Other: SEEMS SOMEWHAT UNSETTLED AND ANXIOUS TODAY IN OFFICE. Mental Status: mental status grossly normal Speech and movement: Normal speech and movement present Affect: normal affect Attitude: cooperative Thought process: Normal thought process present Assessment and Plan Assessment & Plan (1) SINDY (generalized anxiety disorder): Code(s): F41.1 - Generalized anxiety disorder Plan: Patient's signs and symptoms are all unclear. Most likely related to her diagnosed generalized anxiety. Offered increased dose of her Celexa though she would like to hold off and get nonfasting labs. Has been taking lorazepam on a once daily basis and will likely increase to twi ce daily for the time being. (2) Unsteady gait: Code(s): R26.81 - Unsteadiness on feet (3) Fatigue: Code(s): R53.83 - Other fatigue Qualifiers: Fatigue type: unspecified Qualified Code(s): R53.83 - Other fatigue Orders: Orders IRON PROFILE 02/13/23 D50.9 - Iron deficiency anemia, unspecified, R53.83 - Other fatigue Complete Blood Count no Diff 02/13/23 R53.83 - Other fatigue Basic Metabolic Panel 02/13/23 R53.83 - Other fatigue TSH reflex Free T4 02/13/23 R53.83 - Other fatigue Coding Level of Care Code Est Pt Level 3 (93948) Diagnoses SINDY (generalized anxiety disorder) F41.1 Unsteady gait R26.81 Fatigue, unspecified type R53.83 Fatigue type: unspecified
[2023-02-13 15:54] VITALS: BP 150/70; PULSE 67; O2SAT 97; BMI 24.0
== END 2023-02-13 16:39 | disposition home or self-care (01) ==
PROVIDERS: PCP Internal Medicine; Visit Provider Physician Assistant
DX: F41.1 Generalized anxiety disorder (principal); R26.81 Unsteadiness on feet; R53.83 Other fatigue
CPT/HCPCS: 99213

== ENCOUNTER 2023-02-13 16:43 | Outpatient (REF) | payer OTHER, SELFPAY ==
[2023-02-13 17:58] LABS: Hematocrit 37.2 % (37.0-47.0); Hemoglobin 12.4 g/dl (12.0-16.0); Mean Corpuscular HGB Conc 33.3 g/dl (31.0-35.0); Mean Corpuscular Hemoglobin 29.5 pg (27.0-33.0); Mean Corpuscular Volume 88.4 fL (80.0-98.0); Mean Platelet Volume 10.2 fL (9.4-12.3); Platelet Count 224 X10*3/uL (160-400); Red Blood Count 4.21 X10*6/uL (4.20-5.50); Red Cell Distribution Width 12.8 % (11.0-16.0); White Blood Count 6.7 X10*3/uL (4.8-10.8)
[2023-02-13 18:15] LABS: Anion Gap 13 (12-20); Blood Urea Nitrogen 11 mg/dL (9-16); Calcium 9.1 mg/dL (8.4-10.2); Carbon Dioxide 25 mmol/L (22-29); Chloride 100 mmol/L (96-108); Estimated Glomerular Filt Rate > 60; Glucose Random 95 mg/dL (60-115); Iron 56 mcg/dL (30-160); Percent Iron Saturation 21 % (15-50); Potassium 4.1 mmol/L (3.3-5.1); Sodium 134 mmol/L (135-145); Total Iron Binding Capacity 271 mcg/dL (228-428); Unsaturated Iron Binding 215 ug/dL
== END 2023-02-13 16:44 | disposition home or self-care (01) ==
LOC: HO.LAB 16:43
PROVIDERS: PCP Physician Assistant; Visit Provider Physician Assistant
DX: R53.83 Other fatigue (principal); D50.9 Iron deficiency anemia, unspecified
CPT/HCPCS: 36415; 80048; 83540; 84443; 85027

== ENCOUNTER 2023-09-24 10:42 | Outpatient (AMB) | payer MEDICARE, SELFPAY ==
--- NOTE | 2023-09-24 11:00 | A.OFFVIS_ITS ---
Vital Signs 09/24/23 11:01 Height 5 ft 3.39 in Weight 141 lb 1.533 oz BMI 24.7 BP 120/70 Blood Pressure Location Rt brachial Position Sitting Pulse 59 Intake Visit Reasons: 1 yr f/up Intake Note: 1 year follow-up with ekg Chipping Machine Operator Required: No Allergies No Known Allergies Allergy (Verified 02/13/23 16:20) Medication List - Last Reconciled 09/24/23 by Pj Kaiser MD aspirin (Adult Aspirin Regimen) 81 mg PO DAILY calcium carbonate-vitamin D3 600 mg-10 mcg (400 unit) 1 tab PO DAILY 90 days citalopram (Celexa) 20 mg PO DAILY 90 days lorazepam 0.5 mg PO BID PRN 30 days sumatriptan succinate 50 mg PO ONCE PRN 30 days HPI Comments Details: Mary Beth Comes for follow-up. She is done very well from cardiac perspective. She says she has not had any major episodes of prolonged palpitation except for 1 episode, then she takes her Xanax and symptoms resolved. She is identifying what triggers cause her to get anxious and then cause her to have palpitations. She denies any exertional chest pain or shortness of breath. Does have full functionality at this point in time. Denies any heart failure symptoms. No lightheadedness, syncope. [facility] Medical History Encounter for Medicare annual wellness exam Migraine headache GERD (gastroesophageal reflux disease) Basal cell carcinoma FHx: mastectomy Breast cancer History of palpitations Surgical History Basal cell carcinoma (BCC) in situ of skin History of cataract surgery H/O mastectomy Family History Father No problems noted. Mother Cancer Social History Housing: House Alcohol intake: never Patient Tobacco Use Status: Never used Tobacco e-Cigarette/Vaping Use: Never Used Second Hand Smoke Exposure: No service: No Current occupational status: retired Cognitive needs: No Hearing needs: Yes Vision needs: Yes Review of Systems Const Denies chills, Denies fatigue, Denies fever(s), Denies frequent falls, Denies weakness, Denies weight gain and Denies weight loss ENT Denies dizziness Card Denies chest pain, Denies leg edema, Denies lightheadedness, Denies palpitations, Denies dyspnea, Denies dyspnea on exertion, Denies orthopnea and Denies other (loss of consciousness) Resp Denies cough, Denies dyspnea and Denies dyspnea on exertion GI Denies hematochezia and Denies change in stool character Musc Denies abnormal gait, Denies muscle weakness, Denies numbness, Denies radiating pain into limb and Denies tingling Neuro Denies abnormal gait, Denies dizziness, Denies frequent falls, Denies numbness, Denies tingling and Denies weakness Endo Denies fatigue and Denies palpitations Physical Exam Vital Signs: Last Vital Signs Pulse 59 09/24/23 11: BP 120/70 09/24/23 11:01 BMI result Body Mass Index 24.7 Office Procedures EKG Details: EKG shows sinus bradycardia at 59 beats per minute [id number], Complete Assessment & Plan Assessment & Plan (1) SVT (supraventricular tachycardia): Code(s): I47.1 - Supraventricular tachycardia Category: Medical Plan: Supraventricular tachycardia which has remained predominantly suppressed with lifestyle modification trigger modification. She is identify more. I have advised her to taper and discontinue her caffeine intake. Continue stress mitigation strategies. Continue treatment of general anxiety disorder. Vagal maneuvers were discussed again. No indication for pharmacotherapy. If she has major episode that leads to ED presentation and/or continued symptoms will pursue either pharmacotherapy and/or ablation. Will follow up in the clinic in 1 year's time, sooner p.r.n.. Thank you for allowing me to partake in her care Coding Level of Care Code Est Pt Level 3 (92225) Diagnoses SVT (supraventricular tachycardia) I47.1 CPT Codes EKG - CPT: [id number], Complete ([id number])
[2023-09-24 11:01] VITALS: BP 120/70; PULSE 59; BMI 24.7
== END 2023-09-24 11:30 | disposition home or self-care (01) ==
PROVIDERS: PCP Internal Medicine; Visit Provider Internal Medicine Cardiovascular Disease
DX: I47.10 Supraventricular tachycardia, unspecified (principal)
CPT/HCPCS: 93010; 99213

== ENCOUNTER → 2023-09-24 10:42 | Outpatient (BNVA) | payer MEDICARE, SELFPAY | PROVIDERS: PCP Internal Medicine; Visit Provider Internal Medicine Cardiovascular Disease | DX: R00.2 Palpitations (principal); I47.10 Supraventricular tachycardia, unspecified | CPT/HCPCS: 93005; 99212 ==

== ENCOUNTER 2023-09-25 12:46 | Outpatient (AMB) | payer MEDICARE, SELFPAY ==
--- NOTE | 2023-09-25 12:56 | MHC.PC.OV ---
Vital Signs 09/25/23 12:59 Height 5 ft 3.39 in Weight 140 lb BMI 24.5 BP 130/72 Blood Pressure Location Lt brachial Position Sitting Intake Visit Reasons: PE Intake Note: Patient here for a physical exam Hog Buyer Required: No Accompanied by: Self / Same As Patient Allergies No Known Allergies Allergy (Verified 09/25/23 13:09) Medication List - Last Reconciled 09/25/23 by Leslee Torres MD aspirin (Adult Aspirin Regimen) 81 mg PO DAILY calcium carbonate-vitamin D3 600 mg-10 mcg (400 unit) 1 tab PO DAILY 90 days citalopram (Celexa) 20 mg PO DAILY 90 days lorazepam 0.5 mg PO BID PRN 30 days sumatriptan succinate 50 mg PO ONCE PRN 30 days Tobacco use date assessed: 09/25/23 Fall risk assessment: No Falls in past year Last assessed Fall Risk: 09/25/23 Dental Screening Dental Screen Date: 09/25/23 Did you have a dental visit in the last 12 months?: Yes Did you have a dental problem in the last 6 months where you did not have access to dental care?: No Was dental information given to patient?: Patient has dentist HPI HPI Comments History of Present Illness Details This is an 82-year-old female that comes for her physical exam. Last mammogram was 12/03/2022 and was normal. Has history of breast cancer. No chest pain or shortness of breath. Complains of bilateral leg weakness. Walks with no assistive device. [facility] Medical History (Updated 09/25/23 @ 14:47 by Leslee Torres MD) SVT (supraventricular tachycardia) Encounter for Medicare annual wellness exam Migraine headache GERD (gastroesophageal reflux disease) Basal cell carcinoma FHx: mastectomy Breast cancer History of palpitations Surgical History Basal cell carcinoma (BCC) in situ of skin History of cataract surgery H/O mastectomy Family History Father No problems noted. Mother Cancer Social History Housing: House Alcohol intake: never Patient Tobacco Use Status: Never used Tobacco e-Cigarette/Vaping Use: Never Used Second Hand Smoke Exposure: No service: No Current occupational status: retired Cognitive needs: No Hearing needs: Yes Vision needs: Yes Questionnaire PHQ-9 Over the last 2 weeks, how often have you been bothered by any of the following problems? 1. Little interest or pleasure in doing things: not at all 2. Feeling down, depressed, or hopeless: not at all 3. Trouble falling or staying asleep, or sleeping too much: not at all 4. Feeling tired or having little energy: not at all 5. Poor appetite or overeating: not at all 6. Feeling bad about yourself - or that you are a failure or have let yourself or your family down: not at all 7. Trouble concentrating on things, such as reading the newspaper or watching television: not at all 8. Moving or speaking so slowly that other people could have noticed. Or the opposite - being so fidgety or restless that you have been moving around a lot more than usual: not at all 9. Thoughts that you would be better off or of hurting yourself in some way: not at all Total score: 0 Depression Screening Interpretation: Negative Depression Screening Done: Yes 05368 - PHQ-9 Billing: Yes Source: Developed by Drs. Reed Elmore, Courtney Rodriguez, Panda Clayton and colleagues, with an educational shaniqua from [employer]. Thrive Questionnaire Date Thrive assessed: 09/25/23 I am a: Patient What is your living situation today?: I have a steady place to live Within the past 12 months, did the food you bought not last and you didn't have the money to get more?: Never true Within the past 12 months, did you worry whether your food would run out before you got money to buy more?: Never true Do you have trouble paying for medicines?: No Do you have trouble getting transportation to medical appointments?: No Do you have trouble paying your heating and electricity bill?: No Do you have trouble taking care of your child, family member or friend?: No Do you have trouble with day-to-day activities such as bathing, preparing meals, shopping, managing finances, etc.?: No Are you currently unemployed and looking for a job?: No Are you interested in more education?: No Please select the resources that you would like help with: None Currently or been in a relationship where the following occur: no concerns reported THRIVE Score: 0 AUDIT C Alcohol Use Questionnaire (AUDIT-C) 1. How often do you have a drink containing alcohol?: Never Total Score: 0 Score Reviewed/Action Taken: No SINDY-7 AMB Questionnaire SINDY-7 Date SINDY - 7 assessed: 09/25/23 Feeling nervous, anxious, or on edge: 1 = Several days Not being able to stop or control worryin = Not at all Worrying too much about different things: 0 = Not at all Trouble relaxin = Not at all Being so restless that it is hard to sit still: 0 = Not at all Becoming easily annoyed or irritable: 0 = Not at all Feeling afraid as if something awful might happen: 0 = Not at all Total SINYD-7 score (0-4 normal; 5-9 mild; 10-14 moderate; 15-21 severe): 1 Source: Developed by Drs. Reed Elmore, Courtney Rodriguez, Panda Clayton and colleagues, with an educational shaniqua from [employer]. SINDY-7 Assessment Billing SINDY-7 Assessment Tool: SINDY-7 Assessment 80556 Review of Systems Const All systems reviewed & are unremarkable except as noted in HPI and below Reports weakness Card Denies chest pain at rest, Denies chest pain with activity, Denies edema, Denies irregular heart rhythm, Denies claudication, Denies dyspnea, Denies dyspnea on exertion, Denies orthopnea, Denies paroxysmal nocturnal dyspnea and Denies slow heart rate Resp Denies cough, Denies dyspnea and Denies dyspnea on exertion GI Denies abdominal pain, Denies change in bowel habits, Denies excessive flatus, Denies nausea and Denies vomiting Denies urinary incontinence, Denies urinary hesitancy and Denies urinary urgency Musc Denies atrophy, Denies deformity and Denies limited range of motion Neuro Reports weakness Physical exam (Primary Care) Vital Signs: Last Vital Signs BP 130/72 09/25/23 12:59 BMI result Body Mass Index 24.5 Tobacco/Smoking Status: Tobacco use Status Tobacco use date assessed 09/25/23 09/25/23 13:03 Patient Tobacco Use Status Never used Tobacco 09/25/23 13:03 Tobacco use type 02/20/22 10:26 e-Cigarette/Vaping Use Never Used 09/25/23 13:03 PHQ-9: PHQ-9 Score PHQ-9: Total score 0 09/25/23 13:35 Depression Screening Interpretation: Negative Thrive Assessment: Date of Thrive Assessment Date Thrive assessed 09/25/23 09/25/23 13:03 Currently or been in a relationship where the following occur: no concerns reported Const Orientation/consciousness: patient oriented x3 HENMT Head: Yes normal to inspection, Yes normocephalic and Yes atraumatic Ears: external ears normal Eyes General: appearance normal, both eyes and all related structures Eyelids: Yes eyelids normal Conjunctivae: conjunctivae normal Neck Neck: Yes normal visual inspection and Yes supple Resp Effort & Inspection: normal respiratory effort Auscultation: clear to auscultation bilaterally Cardio Jugular venous distension: no JVD Rate: regular rate Rhythm: regular rhythm Heart sounds: S1 normal heart sound present and S2 normal heart sound present GI Inspection: Yes normal to inspection Palpation (GI): Soft to palpation and nontender Auscultation: normal bowel sounds Skin General skin exam: no rashes or lesions noted Neuro General: patient oriented x3 and no focal motor deficits Romberg Test: Negative Extrem General: Yes full ROM Psych Appearance: grossly normal Immunizations tetanus-diphtheria toxoids-Td 2 Lf unit-2 Lf unit/0.5 mL IM suspension Performing Provider: Leslee Torres MD Performing Location: [facility] Administered by: HERBERT Biggs on 09/25/23 13:35 Dose Route Admin Location Dispensed Lot Number Expiration Date [facility] Putty Glazer 0.5 mL IM Left Deltoid 0.5 mL [id number] 05/17/24 [address]-3 [employer] VIS Given Date VIS Provided VIS Publication Date 09/25/23 Single Vaccine 20 Eligibility Eligibility Date Funding Source Not [facility] Eligible 09/25/23 State funds Assessment and Plan Assessment & Plan (1) Adult general medical exam: Code(s): Z00.00 - Encounter for general adult medical examination without abnormal findings Plan: Repeat in a year. Orders: Orders Td State Immunization Today Z23 - Encounter for immunization Comprehensive Ethel. Panel Fast Today Z00.00 - Encounter for general adult medical examination without abnormal findings Lipid Panel Today Z00.00 - Encounter for general adult medical examination without abnormal findings Coding Level of Care Code Est Pt Prev Care >65y(81463) Diagnoses Adult general medical exam Z00.00 Additional Codes SINDY-7 Assessment Billing - SINDY-7 Assessment Tool: SINDY-7 Assessment 15192 ([id number]) Time Spent (min) 35
[2023-09-25 12:59] VITALS: BP 130/72; BMI 24.5
== END 2023-09-25 13:41 | disposition home or self-care (01) ==
PROVIDERS: PCP Internal Medicine; Visit Provider Internal Medicine
DX: Z00.00 Encounter for general adult medical examination without abnormal findings (principal); Z23 Encounter for immunization
CPT/HCPCS: 90471; 90714; 99397

== ENCOUNTER 2023-09-27 07:26 | Outpatient (REF) | payer OTHER, SELFPAY ==
[2023-09-27 08:14] LABS: Alanine Aminotransferase 13 U/L (0-31); Alkaline Phosphatase 64 U/L (39-117); Anion Gap 9 (12-20); Aspartate Amino Transferase 16 U/L (5-31); Bilirubin Total 0.5 mg/dL (0.0-1.0); Blood Urea Nitrogen 10 mg/dL (9-16); Calcium 8.9 mg/dL (8.4-10.2); Carbon Dioxide 28 mmol/L (22-29); Chloride 100 mmol/L (96-108); Cholesterol 180 mg/dL (<200); Estimated Glomerular Filt Rate > 60; Glucose Fasting 92 mg/dL (60-99); HDL Cholesterol 61 mg/dL (>40); LDL Cholesterol Calculated 103 mg/dL (<100); Potassium 4.1 mmol/L (3.3-5.1); Sodium 133 mmol/L (135-145); Triglycerides 80 mg/dL (<150)
== END 2023-09-27 07:27 | disposition home or self-care (01) ==
LOC: HO.LAB 07:26
PROVIDERS: PCP Internal Medicine; Visit Provider Internal Medicine
DX: Z00.00 Encounter for general adult medical examination without abnormal findings (principal)
CPT/HCPCS: 36415; 80053; 80061

== ENCOUNTER 2024-10-01 12:54 | Outpatient (AMB) | payer OTHER, SELFPAY ==
--- NOTE | 2024-10-01 12:58 | A.OFFPC_ITS ---
Vital Signs 10/01/24 13:00 Height 5 ft 3.39 in Weight 139 lb BMI 24.3 BP 156/70 H Blood Pressure Location Rt brachial Position Sitting Intake Visit Reasons: PE Intake Note: Patient here for a physical exam [employer] Instructor Required: No Accompanied by: Self / Same As Patient Allergies No Known Allergies Allergy (Verified 10/01/24 13:14) Medication List - Last Reconciled 10/01/24 by Leslee Torres MD aspirin (Adult Aspirin Regimen) 81 mg PO DAILY calcium carbonate-vitamin D3 600 mg-10 mcg (400 unit) 1 tab PO DAILY 90 days citalopram (Celexa) 20 mg PO DAILY 90 days lorazepam 0.5 mg PO BID PRN 30 days sumatriptan succinate 50 mg PO ONCE PRN 30 days Tobacco use date assessed: 10/01/24 Fall risk assessment: No Falls in past year Last assessed Fall Risk: 10/01/24 Dental Screening Dental Screen Date: 10/01/24 Did you have a dental visit in the last 12 months?: Yes Did you have a dental problem in the last 6 months where you did not have access to dental care?: No Was dental information given to patient?: Patient has dentist HPI HPI Comments History of Present Illness Details This is an 83-year-old female with anxiety that comes for her physical exam. Has some mild major depression but complains of intermittent palpitations therefore I will decrease citalopram from 20 mg to 10 mg. For palpitations I will order an EKG and Holter monitor. No need for colonoscopy, mammogram or Pap smear due to age. Vaccines are up-to-date. [facility] Medical History (Updated 10/01/24 @ 21:23 by Leslee Torres MD) SVT (supraventricular tachycardia) Encounter for Medicare annual wellness exam Migraine headache GERD (gastroesophageal reflux disease) Basal cell carcinoma FHx: mastectomy Breast cancer History of palpitations Surgical History Basal cell carcinoma (BCC) in situ of skin History of cataract surgery H/O mastectomy Family History Father No problems noted. Mother Cancer Social History Housing: House Alcohol intake: never Patient Tobacco Use Status: Never used Tobacco e-Cigarette/Vaping Use: Never Used Second Hand Smoke Exposure: No service: No Current occupational status: retired Cognitive needs: No Hearing needs: Yes Vision needs: Yes Questionnaire PHQ-9 Over the last 2 weeks, how often have you been bothered by any of the following problems? 1. Little interest or pleasure in doing things: several days 2. Feeling down, depressed, or hopeless: not at all 3. Trouble falling or staying asleep, or sleeping too much: several days 4. Feeling tired or having little energy: more than half the days 5. Poor appetite or overeating: not at all 6. Feeling bad about yourself - or that you are a failure or have let yourself or your family down: several days 7. Trouble concentrating on things, such as reading the newspaper or watching television: several days 8. Moving or speaking so slowly that other people could have noticed. Or the opposite - being so fidgety or restless that you have been moving around a lot more than usual: several days 9. Thoughts that you would be better off or of hurting yourself in some way: not at all Total score: 7 Depression Screening Interpretation: Positive Depression Screening Follow-up: Existing condition, In treatment and Follow-up Visit Requested Depression Screening Done: Yes 58437 - PHQ-9 Billing: Yes Source: Developed by Drs. Reed Elmore, Courtney Rodriguez, Panda Clayton and colleagues, with an educational shaniqua from [employer]. Thrive Questionnaire Date Thrive assessed: 09/24/24 I am a: Patient What is your living situation today?: I have a steady place to live Within the past 12 months, did the food you bought not last and you didn't have the money to get more?: Never true Within the past 12 months, did you worry whether your food would run out before you got money to buy more?: Never true Do you have trouble paying for medicines?: No Do you have trouble getting transportation to medical appointments?: No Do you have trouble paying your heating and electricity bill?: No Do you have trouble taking care of your child, family member or friend?: No Do you have trouble with day-to-day activities such as bathing, preparing meals, shopping, managing finances, etc.?: No Are you currently unemployed and looking for a job?: No Are you interested in more education?: No Please select the resources that you would like help with: None Currently or been in a relationship where the following occur: No concerns reported THRIVE Score: 0 AUDIT C Alcohol Use Questionnaire (AUDIT-C) 1. How often do you have a drink containing alcohol?: Never Total Score: 0 SINDY-7 AMB Questionnaire SINDY-7 Date SINDY - 7 assessed: 10/01/24 Feeling nervous, anxious, or on edge: 2 = More than half the days Not being able to stop or control worryin = Not at all Worrying too much about different things: 1 = Several days Trouble relaxin = Not at all Being so restless that it is hard to sit still: 0 = Not at all Becoming easily annoyed or irritable: 1 = Several days Feeling afraid as if something awful might happen: 1 = Several days Total SINDY-7 score (0-4 normal; 5-9 mild; 10-14 moderate; 15-21 severe): 5 Source: Developed by Drs. Reed Elmore, Courtney Rodriguez, Panda Clayton and colleagues, with an educational shanqiua from [employer]. SINDY-7 Assessment Billing SINDY-7 Assessment Tool: SINDY-7 Assessment 88053 Review of Systems Const All systems reviewed & are unremarkable except as noted in HPI and below Card Denies chest pain at rest, Denies chest pain with activity, Denies edema, Denies irregular heart rhythm, Denies claudication, Denies dyspnea, Denies dyspnea on exertion, Denies orthopnea, Denies paroxysmal nocturnal dyspnea and Denies slow heart rate Resp Denies cough, Denies dyspnea and Denies dyspnea on exertion GI Denies abdominal pain, Denies change in bowel habits, Denies excessive flatus, Denies nausea and Denies vomiting Denies urinary incontinence, Denies urinary hesitancy and Denies urinary urgency Musc Denies abnormal gait, Denies atrophy, Denies deformity and Denies limited range of motion Skin/Breast Denies bleeding lesions, Denies changing lesions and Denies rash Neuro Denies abnormal gait and Denies lack of coordination Physical exam (Primary Care) Vital Signs: Last Vital Signs BP 156/70 H 10/01/24 13:00 BMI result Body Mass Index 24.3 Tobacco/Smoking Status: Tobacco use Status Tobacco use date assessed 10/01/24 10/01/24 13:07 Patient Tobacco Use Status Never used Tobacco 10/01/24 13:07 Tobacco use type 02/20/22 10:26 e-Cigarette/Vaping Use Never Used 10/01/24 13:07 PHQ-9: PHQ-9 Score PHQ-9: Total score 7 10/01/24 17:56 Depression Screening Interpretation: Positive Depression Screening Follow-up: Existing condition, In treatment and Follow-up Visit Requested Thrive Assessment: Date of Thrive Assessment Date Thrive assessed 09/24/24 10/01/24 13:07 Currently or been in a relationship where the following occur: No concerns reported HENMT Head: Yes normal to inspection, Yes normocephalic and Yes atraumatic Ears: external ears normal Eyes General: appearance normal, both eyes and all related structures Eyelids: Yes eyelids normal Conjunctivae: conjunctivae normal Neck Neck: Yes normal visual inspection and Yes supple Resp Effort & Inspection: normal respiratory effort Auscultation: clear to auscultation bilaterally Cardio Jugular venous distension: no JVD Rate: regular rate Rhythm: regular rhythm Heart sounds: S1 normal heart sound present and S2 normal heart sound present GI Inspection: Yes normal to inspection Palpation (GI): Soft to palpation and nontender Auscultation: normal bowel sounds Skin General skin exam: no rashes or lesions noted Neuro General: no focal motor deficits Extrem General: Yes full ROM Psych Appearance: grossly normal Coding Level of Care Code Est Pt Level 3 (64979) Est Pt Prev Care >65y(05689) Diagnoses Physical exam Z00.00 Intermittent palpitations R00.2 Mild major depression F32.0 Additional Codes SINDY-7 Assessment Billing - SINDY-7 Assessment Tool: SINDY-7 Assessment 90927 ([id number]) PHQ-9 - 09091 - PHQ-9 Billing: Yes ([id number]) Time Spent (min) 33 Assessment & Plan Assessment & Plan (1) Physical exam: Code(s): Z00.00 - Encounter for general adult medical examination without abnormal findings Category: Medical (2) Intermittent palpitations: Code(s): R00.2 - Palpitations Category: Medical (3) Mild major depression: Code(s): F32.0 - Major depressive disorder, single episode, mild Category: Medical Plan Repeat physical exam in a year. Decrease citalopram from 20 mg to 10 mg. Order EKG and Holter. Follow-up with Cardiology. Orders: Orders ECG holter monitor 48 hour Today R00.2 - Palpitations Vitamin D 25-OH Total Today E55.9 - Vitamin D deficiency, unspecified Vitamin B12 and Folate Today E53.8 - Deficiency of other specified B group vitamins Complete Blood Count Auto Diff Today D64.9 - Anemia, unspecified, R00.2 - Palpitations PT Evaluation and Treatment Today M54.50 - Low back pain, unspecified, R26.81 - Unsteadiness on feet ECG 12 lead EKG Today R00.2 - Palpitations XR DEXA axial skeleton Today Z78.0 - Asymptomatic menopausal state Comprehensive [place]. Panel Fast Today Z00.00 - Encounter for general adult medical examination without abnormal findings Lipid Panel Today Z00.00 - Encounter for general adult medical examination without abnormal findings Thyroid Stimulating Hormone Today R00.2 - Palpitations Medications: New citalopram 10 mg PO DAILY 90 tabs 1RF 90 days Discontinued citalopram (Celexa) Discontinued Reason: Patient Completed Course 20 mg PO DAILY 90 days 90 tabs 1RF F41.1 - Generalized anxiety disorder
[2024-10-01 13:00] VITALS: BP 156/70; BMI 24.3
--- OUTSIDE RECORDS SUMMARY | 2024-10-01 14:47 | XMS_ITS | Clinical Summary ---
Author Organization [facility] Address [address] [place] [address] Phone Care Team Providers Care Psychiatric Clinician Name Role Phone Leslee Torres MD Primary Care Provider [phone] Surgical History Surgery Date Site/Laterality Comments BREAST SURGERY 1992 Left PROCEDURE: [place] UNLISTED PROCEDURE BREAST; COMMENT: left lumpectomy BREAST BIOPSY PROCEDURE: BX BREAST; PERC NEEDLE CORE W/IMAG GUID; COMMENT: left breast in 1992 BREAST LUMPECTOMY Medical History Medical History Date Comments Personal history of malignan t neoplasm of breast DX:Personal history of malig nant neoplasm of breast; COMMENT: left breast in 1992 Family History Medical History Relation Name Comments Breast cancer Mother Colon cancer Neg Hx Ovarian cancer Neg Hx Relation Name Status Comments Mother Social History Tobacco Use Types Packs/Day Years Used Date Smoking Tobacco: Never Smokeless Tobacco: Never Alcohol Use Standard Drinks/Week Comments No 0 (1 standard drink = 0.6 oz pur e alcohol) Comments No Sex and Gender Information Value Date Recorded Sex Assigned at Not on file Legal Sex Female 12:59 PM EST Gender Identity Not on file Sexual Orientation Not on file Obstetrics History Para Term AB IAB SAB Ectopic Multiple Livin g Live Births 0 Last Filed Vital Signs Vital Sign Reading Time Taken Comments Blood Pressure - - Pulse - - Temperature - - Respiratory Rate - - Oxygen Saturation - - Inhaled Oxygen Concentration - - Weight 63.5 kg (140 lb) 02/21/2024 11:21 AM EST Height 162.6 cm (5' 4 ) 02/21/2024 11:21 AM EST Body Mass Index 24.03 02/21/2024 11:21 AM EST Plan of Treatment Health Maintenance Due Date Last Done Comments RSV Immunization Adult Patients (1 - 1-dose 75+ series) 11/03/2014 Zoster Vaccines (3 of 3) 03/08/2019 019, 10/10/2018, 12/02/2015 Depression Screening 03/14/2022 Falls Risk Assessment 03/14/2022 Social Influencers of Health Screening 03/14/2022 COVID-19 Vaccine ( season) 2024 12/19/2023, 03/22/2023, 11/24/2022, Additional history exists Osteoporosis Screening (Bone Density Screening) 02/27/2029 02/27/2019 DTaP,Tdap,and Td Vaccines (4 - Td or Tdap) 09/24/2033 09/25/2023, 12/15/2010, 10/15/1999 Pneumococcal Vaccine: 50+ Years Completed 04/19/2018, 03/14/2007 Influenza Vaccine Completed 01/20/2024, , 01/16/2022, Additional history exists HIB Vaccines Aged Out No longer eligi ble based on patient's age to complete this topic HPV Vaccines Aged Out No longer eligi ble based on patient's age to complete this topic Hepatitis A Vaccines Aged Out No long er eligible based on patient's age to complete this topic Hepatitis B Vaccines Aged Out No long er eligible based on patient's age to complete this topic IPV Vaccines Aged Out No longer eligi ble based on patient's age to complete this topic MMR Vaccines Aged Out No longer eligi ble based on patient's age to complete this topic Meningococcal ACWY Vaccine Aged Out N o longer eligible based on patient's age to complete this topic Meningococcal B Vaccine Aged Out No l onger eligible based on patient's age to complete this topic RSV Immunization Patients Under 20 months Aged Out No longer eligible based on patient's age to complete this topic Varicella Vaccines Aged Out No longer eligible based on patient's age to complete this topic Procedures Procedure Name Priority Date/Time Associated Diagnosis Comments DXA BONE DENSITY STUDY 1+ SITS AXIAL SKEL Routine 02/27/2019 9:46 AM EST Disorder of bone, unspecified Disorder of cartilage, unspecified from Last 3 Months or Most Recently Relevant to Health Maintenance Results * DXA BONE DENSITY STUDY 1+ GABRIELLA SLAGADO (02/27/2019 9:46 AM EST) Anatomical Region Laterality Modality Bone Densitometr y 02/06/2019 9:49 AM EDT Narrative 02/28/2019 1:32 PM EST DEXA SCAN: Lumbar Spine T-score is -1.5. (SD relative to 20-29 y/o adult) Z-score is 1.2. (SD relative to age matched peers) This is considered osteopenia by WHO criteria. Left Hip T-score is -2.0. Z-score is 0.3. This is considered osteopenia by WHO criteria. Comparison exam(s): Compared with 04/27/2016 bone mineral density is unchanged.. Impression: Osteopenia by WHO criteria. This patient has a 20% risk of major osteoporotic fracture and a 5.0% risk of hip fracture over the next 10 years. (World Health Organization Fracture Risk Assessment) [facility] Department of Internal Medicine recommends using National Osteoporosis Foundation (NOF) guidelines in treatment decisions related to osteoporosis. NOF guidelines suggest considering treatment for postmenopausal women and men aged 50 or older presenting with the following: History of hip or vertebral fracture. T-score = -2.5 (DXA) at the femoral neck, total hip, or spine, after appropriate evaluation to exclude secondary causes. Low bone mass (T-score between -1.0 and -2.5 at the femoral neck or spine) AND a 10-year probability of a hip fracture = 3% OR a 10-year probability of a major osteoporosis-related fracture = 20% based on the [place]-adapted WHO algorithm Please note that all treatment decisions require clinical judgment and consideration of individual patient factors, including patient preferences, co-morbidities, previous drug use, risk factors not captured in the FRAX model (e.g., frailty, falls, vitamin D deficiency, increased bone turnover, interval significant decline in bone density) and possible under- or over-estimation of fracture risk by FRAX. Optional alternative screening schedule based on cortney Raymundo., [facility] May 04, 2011 for patients with osteopenia (based on hip BMD T-score) is as follows: advanced osteopenia (T scores -2.00 to -2.49), BMD testing every year moderate osteopenia (T scores -1.50 to -1.99), BMD testing every 5 years mild osteopenia or normal BMD (T scores -1.50 and higher), BMD testing every 15 years Procedure Note Adam Bone - 04/04/2022 DEXA SCAN: Lumbar Spine T-score is -1.5. (SD relative to 20-29 y/o adult) Z-score is 1.2. (SD relative to age matched peers) This is considered osteopenia by WHO criteria. Left Hip T-score is -2.0. Z-score is 0.3. This is considered osteopenia by WHO criteria. Comparison exam(s): Compared with 04/27/2016 bone mineral density isunchanged.. Impression: Osteopenia by WHO criteria. This patient has a 20% risk ofmajor osteoporotic fracture and a 5.0% risk of hip fracture over the next10 years. (World Health Organization Fracture Risk Assessment) [facility] Department of Internal Medicine recommendsusing National Osteoporosis Foundation (NOF) guidelines in treatmentdecisions related to osteoporosis. NOF guidelines suggest consideringtreatment for postmenopausal women and men aged 50 or older presentingwith the following: History of hip or vertebral fracture. T-score = -2.5 (DXA) at the femoral neck, total hip, or spine, afterappropriate evaluation to exclude secondary causes. Low bone mass (T-score between -1.0 and -2.5 at the femoral neck or spine)AND a 10-year probability of a hip fracture = 3% OR a 10-year probabilityof a major osteoporosis-related fracture = 20% based on the [place]-adapted WHOalgorithm Please note that all treatment decisions require clinical judgment andconsideration of individual patient factors, including patientpreferences, co-morbidities, previous drug use, risk factors not capturedin the FRAX model (e.g., frailty, falls, vitamin D deficiency, increasedbone turnover, interval significant decline in bone density) and possibleunder- or over-estimation of fracture risk by FRAX. Optional alternative screening schedule based on cortney Raymundo., [place] for patients with osteopenia (based on hip BMD T-score)is as follows: advanced osteopenia (T scores -2.00 to -2.49), BMD testing every year moderate osteopenia (T scores -1.50 to -1.99), BMD testing every 5 years mild osteopenia or normal BMD (T scores -1.50 and higher), BMD testingevery 15 years Dean Jackson MD IMG DXA PROCEDURES Final Result from Last 3 Months or Most Recently Relevant to Health Maintenance Insurance [place] [facility] Care Teams Psychiatric Clinician Relationship Specialty Start Date End Date Leslee Torres MD [address] [facility] , [address] [facility] D/B/A: [facility] [place], RAJI PCP - General Internal Medicine 02/03/24
== END 2024-10-01 13:36 | disposition home or self-care (01) ==
LOC: HO.HMCH 12:55
PROVIDERS: PCP Internal Medicine; Visit Provider Internal Medicine
DX: Z00.00 Encounter for general adult medical examination without abnormal findings (principal); R00.2 Palpitations; F32.0 Major depressive disorder, single episode, mild

== ENCOUNTER → 2024-10-01 12:54 | Outpatient (BNVA) | payer OTHER, SELFPAY | PROVIDERS: PCP Internal Medicine; Visit Provider Internal Medicine | DX: Z00.01 Encounter for general adult medical examination with abnormal findings (principal); R00.2 Palpitations; F32.0 Major depressive disorder, single episode, mild; E55.9 Vitamin D deficiency, unspecified; E53.8 Deficiency of other specified B group vitamins; D64.9 Anemia, unspecified; M54.50 Low back pain, unspecified | CPT/HCPCS: 96127; 99212; 99397 ==

== ENCOUNTER 2024-10-03 07:50 | Outpatient (REF) | payer OTHER, SELFPAY ==
--- OUTSIDE RECORDS SUMMARY | 2024-10-03 07:53 | XMS_ITS | Clinical Summary ---
Author Organization [facility] Address [address] [place] [address] Phone Care Team Providers Care Manager Document Control Name Role Phone Leslee Torres MD Primary Care Provider [phone] Surgical History Surgery Date Site/Laterality Comments BREAST SURGERY 1992 Left PROCEDURE: [place] UNLISTED PROCEDURE BREAST; COMMENT: left lumpectomy BREAST [...] * DXA BONE DENSITY STUDY 1+ GABRIELLA SALGADO (02/27/2019 9:46 AM EST) Anatomical Region Laterality [...] (World Health Organization Fracture Risk Assessment) [facility] Department of Internal Medicine recommends using National [...] alternative screening schedule based on cortney Raymundo., [facility] May 04, 2011 for patients with osteopenia [...] (World Health Organization Fracture Risk Assessment) [facility] Department of Internal Medicine recommendsusing National Osteoporosis [...] to Health Maintenance [place] - [place] [facility] Care Teams Manager Document Control Relationship Specialty Start Date End Date Leslee Torres MD [address] [facility] , [address] [facility] D/B/A: [facility] [place], RAJI PCP - General Internal Medicine 02/03/24
--- NOTE | 2024-10-03 07:56 | ECG_ITS ---
Test Reason : palpitations Blood Pressure : */* mmHG Vent. Rate : 59 BPM Atrial Rate : 59 BPM P-R Int : 178 ms QRS Dur : 86 ms QT Int : 432 ms P-R-T Axes : 64 -35 73 degrees QTcB Int : 427 ms Sinus bradycardia Left axis deviation Abnormal ECG When compared with ECG of 04-Feb-2020 11:09, No significant change was found Referred By: Leslee Torres Electronically Signed By: Cuba Shaikh
[2024-10-03 08:01] LABS: MANUAL DIFF FLAG NO
[2024-10-03 08:34] LABS: Basophils Absolute Auto 0.1 X10*3/uL (0.0-0.2); Basophils Percent Auto 1.1 % (0-2); Eosinophils Absolute Auto 0.2 X10*3/uL (0.0-0.4); Eosinophils Percent Auto 3.6 % (0-4); Hemoglobin 12.8 g/dl (12.0-16.0); Imm Gran Abs Auto 0.02 X10*3/uL (0.00-0.03); Imm Gran Pct Auto 0.4 % (0.0-0.4); Lymphocytes Absolute Auto 1.1 X10*3/uL (1.2-4.9); Lymphocytes Percent Auto 23.9 % (20-40); Mean Corpuscular HGB Conc 33.7 g/dl (31.0-35.0); Mean Corpuscular Hemoglobin 29.7 pg (27.0-33.0); Mean Corpuscular Volume 88.2 fL (80.0-98.0); Mean Platelet Volume 10.1 fL (9.4-12.3); Monocytes Absolute Auto 0.5 X10*3/uL (0.1-1.2); Monocytes Percent Auto 9.6 % (2-11); Neutrophils Absolute Auto 2.9 x10*3/uL (2.0-8.3); Neutrophils Percent Auto 61.4 % (45-73); Platelet Count 210 X10*3/uL (160-400); Red Blood Count 4.31 X10*6/uL (4.20-5.50); Red Cell Distribution Width 12.8 % (11.0-16.0); White Blood Count 4.7 X10*3/uL (4.8-10.8)
[2024-10-03 09:27] LABS: Alanine Aminotransferase 13 U/L (0-31); Albumin Level 4.1 g/dL (3.5-5.0); Alkaline Phosphatase 59 U/L (39-117); Anion Gap 8 (12-20); Aspartate Amino Transferase 18 U/L (5-31); Bilirubin Total 0.6 mg/dL (0.0-1.0); Blood Urea Nitrogen 12 mg/dL (9-16); Calcium 8.8 mg/dL (8.4-10.2); Carbon Dioxide 27 mmol/L (22-29); Chloride 103 mmol/L (96-108); Cholesterol 189 mg/dL (<200); Estimated Glomerular Filt Rate > 60; Glucose Fasting 98 mg/dL (60-99); HDL Cholesterol 66 mg/dL (>40); LDL Cholesterol Calculated 108 mg/dL (<100); Potassium 4.3 mmol/L (3.3-5.1); Sodium 134 mmol/L (135-145); Total Protein 6.7 g/dL (6.5-8.0); Triglycerides 76 mg/dL (<150)
[2024-10-03 09:36] LABS: Thyroid Stimulating Hormone 1.44 uIU/mL (0.32-4.0); Vitamin D 25-OH Total 31.2 ng/mL (>30)
[2024-10-03 09:49] LABS: Folate 11.8 ng/mL (> or = 4.0); Vitamin B12 417 pg/mL (200-900)
== END 2024-10-03 07:51 | disposition home or self-care (01) ==
LOC: HO.LAB 07:50
PROVIDERS: Visit Provider Internal Medicine
DX: Z00.00 Encounter for general adult medical examination without abnormal findings (principal); E53.8 Deficiency of other specified B group vitamins; D64.9 Anemia, unspecified; R00.2 Palpitations; E55.9 Vitamin D deficiency, unspecified
CPT/HCPCS: 36415; 80053; 80061; 82306; 82607; 82746; 84443; 85025; 93005

== ENCOUNTER → 2024-10-03 07:56 | Outpatient (BNV) | payer OTHER, SELFPAY | PROVIDERS: Visit Provider Internal Medicine Cardiovascular Disease | DX: R00.1 Bradycardia, unspecified (principal) | CPT/HCPCS: 93010 ==

== ENCOUNTER → 2024-10-06 10:28 | Outpatient (REF) | payer OTHER, SELFPAY ==
--- NOTE | 2024-10-06 11:23 | HM_ITS ---
Conclusion: 1. Patient was monitored for total period of 2 days 2. Baseline was normal sinus rhythm with average heart of 62 beats per minute 3. No significant pauses noted 4. Occasional PACs noted with total burden of 0.2% 5. Patient marked the counter 2 times correlating with PACs MTDD
--- OUTSIDE RECORDS SUMMARY | 2024-10-06 11:43 | XMS_ITS | Clinical Summary ---
Author Organization [facility] Address [address] [place] [address] Phone Care Team Providers Care Black Jack Dealer Name Role Phone Leslee Torres MD Primary Care Provider [phone] Surgical History Surgery Date Site/Laterality Comments BREAST SURGERY 1992 Left PROCEDURE: [place] UNLISTED PROCEDURE BREAST; COMMENT: left lumpectomy BREAST [...] (World Health Organization Fracture Risk Assessment) [facility] Department of Internal Medicine recommends using National [...] alternative screening schedule based on cortney Raymundo., [facility] May 04, 2011 for patients with osteopenia [...] (World Health Organization Fracture Risk Assessment) [facility] Department of Internal Medicine recommendsusing National Osteoporosis [...] to Health Maintenance [place] - [place] [facility] Care Teams Black Jack Dealer Relationship Specialty Start Date End Date Leslee Torres MD [address] [facility] , [address] [facility] D/B/A: [facility] [place], RAJI PCP - General Internal Medicine 02/03/24
== END ==
LOC: HO.CARD 10:28
PROVIDERS: PCP Internal Medicine; Visit Provider Internal Medicine
DX: R00.2 Palpitations (principal)
CPT/HCPCS: 93225

== ENCOUNTER → 2024-10-06 11:23 | Outpatient (BNV) | payer OTHER, SELFPAY | PROVIDERS: PCP Internal Medicine; Visit Provider Internal Medicine Cardiovascular Disease | DX: I49.1 Atrial premature depolarization (principal) | CPT/HCPCS: 93227 ==

== ENCOUNTER 2024-10-20 10:51 | Outpatient (AMB) | payer OTHER, SELFPAY ==
--- NOTE | 2024-10-20 10:58 | A.OFFVIS_ITS ---
Vital Signs 10/20/24 11:00 Height 5 ft 3 in Weight 138 lb 14.259 oz BMI 24.6 BP 124/72 Blood Pressure Location Rt brachial Position Sitting Pulse 57 Intake Visit Reasons: r/s 09/23/24 1 yr followup w/ekg Intake Note: 1 year follow-up with ekg feeling good Allergies No Known Allergies Allergy (Verified 10/01/24 13:14) Medication List - Last Reconciled 10/20/24 by Pj Kaiser MD aspirin (Adult Aspirin Regimen) 81 mg PO DAILY calcium carbonate-vitamin D3 600 mg-10 mcg (400 unit) 1 tab PO DAILY 90 days citalopram 10 mg PO DAILY 90 days lorazepam 0.5 mg PO BID PRN 30 days sumatriptan succinate 50 mg PO ONCE PRN 30 days HPI Comments Details: Mary Beth comes for follow-up. Overall she has been doing well. She remains very active. Denies any exertional chest pain or shortness of breath. Takes her aspirin every day. Has had intermittent episodes of palpitations but mostly controlled with her vagal maneuvers and not bothered by it. Happens at nighttime. Patient had recent Holter monitor which showed occasional PACs with symptoms correlating with PACs. No prolonged SVT is noted. Her last LDL was 106 mg/dL. No recent carotid duplex. Blood pressure is generally been well con trolled. [facility] Medical History (Updated 10/20/24 @ 11:32 by Pj Kaiser MD) SVT (supraventricular tachycardia) Encounter for Medicare annual wellness exam Migraine headache GERD (gastroesophageal reflux disease) Basal cell carcinoma FHx: mastectomy Breast cancer History of palpitations Surgical History Basal cell carcinoma (BCC) in situ of skin History of cataract surgery H/O mastectomy Family History Father No problems noted. Mother Cancer Social History Housing: House Alcohol intake: never Patient Tobacco Use Status: Never used Tobacco e-Cigarette/Vaping Use: Never Used Second Hand Smoke Exposure: No service: No Current occupational status: retired Cognitive needs: No Hearing needs: Yes Vision needs: Yes Review of Systems Const Denies chills, Denies fatigue, Denies fever(s), Denies frequent falls, Denies weakness, Denies weight gain and Denies weight loss ENT Denies dizziness Card Denies chest pain, Denies leg edema, Denies lightheadedness, Denies palpitations, Denies dyspnea, Denies dyspnea on exertion, Denies orthopnea and Denies other (loss of consciousness) Resp Denies cough, Denies dyspnea and Denies dyspnea on exertion GI Denies hematochezia and Denies change in stool character Musc Denies abnormal gait, Denies muscle weakness, Denies numbness, Denies radiating pain into limb and Denies tingling Neuro Denies abnormal gait, Denies dizziness, Denies frequent falls, Denies numbness, Denies tingling and Denies weakness Endo Denies fatigue and Denies palpitations Physical Exam Vital Signs: Last Vital Signs Pulse 57 10/20/24 11:00 BP 124/72 10/20/24 11:00 BMI result Body Mass Index 24.6 Const General: cooperative, comfortable, no acute distress, alert, awake, anxious and well groomed Nutritional Appearance: thin Orientation/consciousness: patient oriented x3 Limitations: no limitations Neck Neck: Yes trachea midline, Yes supple and Yes no JVD Resp Effort & Inspection: normal respiratory effort Auscultation: clear to auscultation bilaterally Cardio Jugular venous distension: no JVD Palpation: normal PMI Rate: regular rate Rhythm: regular rhythm Heart sounds: S1 normal heart sound present, S2 normal heart sound present, no click, no gallops, no murmurs and no rubs GI Auscultation: normal bowel sounds Neuro General: patient oriented x3 and no focal motor deficits Extrem General: Yes no clubbing, cyanosis or edema Psych Appearance: grossly normal Speech and movement: Pressured speech present Affect: Anxious affect present Office Procedures EKG Details: EKG shows sinus bradycardia 57 beats per minute with normal EKG [id number], Complete Assessment & Plan Assessment & Plan (1) SVT (supraventricular tachycardia): Code(s): I47.1 - Supraventricular tachycardia Category: Medical Plan: Supraventricular tachycardia with persistent symptoms although recent symptoms more associated with PACs. Benign nature of these was discussed. She is able to control his symptoms with vagal maneuvers and will continue with the same. Avoidance of stimulants was discussed. No pharmacotherapy recommended at this point time. (2) Bilateral carotid artery stenosis: Code(s): I65.23 - Occlusion and stenosis of bilateral carotid arteries Category: Medical Plan: Bilateral carotid disease which mi. Currently not having any symptoms with no symptoms of angina. Continue aggressive medical therapy. Continue low-dose aspirin therapy. Advise repeat carotid duplex. If there is progression disease consider statin therapy and this was discussed with her. She would rather avoid pharmacotherapy at this point time. Will follow up in the clinic in 1 year's time, sooner p.r.n.. Thank you for allowing me to partake in her care Orders: Orders US carotid duplex BI Today I65.23 - Occlusion and stenosis of bilateral carotid arteries Coding Level of Care Code Est Pt Level 4 (33453) Complex EM visit Add On G2211 Diagnoses SVT (supraventricular tachycardia) I47.1 Bilateral carotid artery stenosis I65.23 CPT Codes EKG - CPT: [id number], Complete ([id number])
[2024-10-20 11:00] VITALS: BP 124/72; PULSE 57; BMI 24.6
--- OUTSIDE RECORDS SUMMARY | 2024-10-20 11:48 | XMS_ITS | Clinical Summary ---
Author Organization [facility] Address [address] [place] [address] Phone Care Team Providers Care Group Segment Consultant Name Role Phone Leslee Torres MD Primary Care Provider [phone] Surgical History Surgery Date Site/Laterality Comments BREAST SURGERY 1992 Left PROCEDURE: [place] UNLISTED PROCEDURE BREAST; COMMENT: left lumpectomy BREAST [...] 2024 12/19/2023, 03/22/2023, 11/24/2022, Additional history exists Influenza Vaccine (#1) 2024 , 01/26/2023, 01/16/2022, Additional history exists Osteoporosis Screening (Bone Density Screening) 02/27/2029 02/27/2019 DTaP,Tdap,and Td Vaccines (4 - Td or Tdap) 09/24/2033 09/25/2023, 12/15/2010, 10/15/1999 Pneumococcal Vaccine: 50+ Years Completed 04/19/2018, 03/14/2007 HIB Vaccines Aged Out No longer eligi [...] (World Health Organization Fracture Risk Assessment) [facility] Department of Internal Medicine [...] alternative screening schedule based on cortney Raymundo., [facility] May 04, 2011 for patients [...] (World Health Organization Fracture Risk Assessment) [facility] Department of Internal Medicine [...] alternative screening schedule based on cortney Raymundo., NEJMJanuary 2011 for patients with osteopenia (based on [...] to Health Maintenance Insurance [place] - [place] [facility] Care Teams Group Segment Consultant Relationship Specialty Start Date End Date Leslee Torres MD [address] [place] [address] , [facility] [address] [facility] Physician Associ D/B/A: [facility] [place] PCP - General Internal Medicine 02/03/24
== END 2024-10-20 11:28 | disposition home or self-care (01) ==
LOC: HO.HCS 10:52
PROVIDERS: PCP Internal Medicine; Visit Provider Internal Medicine Cardiovascular Disease
DX: I47.10 Supraventricular tachycardia, unspecified (principal); I65.23 Occlusion and stenosis of bilateral carotid arteries
CPT/HCPCS: 93010; 99214; G2211

== ENCOUNTER → 2024-10-20 10:51 | Outpatient (BNVA) | payer OTHER, SELFPAY | PROVIDERS: PCP Internal Medicine; Visit Provider Internal Medicine Cardiovascular Disease | DX: I65.23 Occlusion and stenosis of bilateral carotid arteries (principal); I47.10 Supraventricular tachycardia, unspecified; R00.1 Bradycardia, unspecified; Z79.82 Long term (current) use of aspirin; Z79.899 Other long term (current) drug therapy | CPT/HCPCS: 93005; 99212 ==

== ENCOUNTER 2024-11-06 08:31 | Outpatient (REF) | payer OTHER, SELFPAY ==
--- NOTE | ~2024-11-06 | MM_ITS ---
EXAMINATION: DXA BONE DENSITY AXIAL HISTORY: Z78.0 - Asymptomatic menopausal state TECHNIQUE: [employer] Dual energy absorptiometry (DEXA) of the lumbar spine, total left hip, and femoral neck was performed. COMPARISON: Comparison is made with the prior examination dated 09/29/2022. FINDINGS: The bone mineral density of the lumbar spine is 0.972 g/cm2, corresponding to a T-score of -1.7, and a Z-score of 0.2. This is indicative of osteopenia. This represents a BMD change of -8.1% compared to the prior exam. This is statistically significant. The bone mineral density of the left total hip is 0.760 g/cm2, corresponding to a T-score of -2.0, and a Z-score of 0.3. This is indicative of osteopenia. This represents a BMD change of -2.8% compared to the prior exam. This is not statistically significant. The bone mineral density of the left femoral neck is 0.769 g/cm2, corresponding to a T-score of -1.9, and a Z-score of 0.5. This is indicative of osteopenia. This represents a BMD change of -1.0% compared to the prior exam. FRACTURE RISK: The FRAX index suggests a ten year probability of major osteoporotic fracture of 21.5%, and of hip fracture 6.2%. MM/XR DEXA axial skeleton IMPRESSION: Based on bone mineral density, and according to World Health Organization (WHO) criteria, the diagnosis is consistent with osteopenia. Statistically, 68% of repeat scans fall within 1 SD (+/- 0.010 g/cm2 for AP spine L1-L4) and 1 SD (+/- 0.012 g/cm2 for femur total) FRAX is a trademark of the [employer] Metabolic Bone Disease, a World Health Organization (WHO) Collaborating Center. Electronically signed by: Reed Jones MD 11/06/2024 09:03 AM EDT
--- OUTSIDE RECORDS SUMMARY | 2024-11-06 08:54 | XMS_ITS | Clinical Summary ---
Author Organization [facility] Address [address] [place] [address] Phone Care Team Providers Care Shirt Folding Machine Operator Name Role Phone Leslee Torres MD Primary Care Provider [phone] Surgical History Surgery Date Site/Laterality Comments BREAST SURGERY 1992 Left PROCEDURE: [place] UNLISTED PROCEDURE BREAST; COMMENT: left lumpectomy BREAST [...] (3 of 3) 03/08/2019 019, 10/10/2018, 12/02/2015 Falls Risk Assessment 03/14/2022 Social Influencers of Health Screening 03/14/2022 Depression Screening 04/16/2024 COVID-19 Vaccine ( season) 2024 12/19/2023, 03/22/2023, [...] (World Health Organization Fracture Risk Assessment) [facility] Department of Internal Medicine recommends using [...] screening schedule based on cortney Raymundo., [facility] May 04, 2011 for patients [...] (World Health Organization Fracture Risk Assessment) [facility] Department of Internal Medicine recommendsusing National [...] to Health Maintenance [place] - [place] [facility] Care Teams Shirt Folding Machine Operator Relationship Specialty Start Date End Date Leslee Torres MD [address] [place] [address] , [facility] [address] [facility] Physician Associ D/B/A: [facility] [place] PCP - General Internal Medicine 02/03/24
== END 2024-11-06 08:32 | disposition home or self-care (01) ==
LOC: HO.MAMMO 08:31
PROVIDERS: PCP Internal Medicine; Visit Provider Internal Medicine
DX: Z13.820 Encounter for screening for osteoporosis (principal); Z78.0 Asymptomatic menopausal state
CPT/HCPCS: 77080

== ENCOUNTER → 2024-11-06 08:45 | Outpatient (BNV) | payer OTHER, SELFPAY | PROVIDERS: PCP Internal Medicine; Visit Provider Radiology Diagnostic Radiology | DX: E28.39 Other primary ovarian failure (principal) | CPT/HCPCS: 77080 ==

== ENCOUNTER 2024-11-20 14:45 | Outpatient (REF) | payer OTHER, SELFPAY ==
--- NOTE | ~2024-11-20 | US_ITS ---
EXAMINATION: US EXTRACRANIAL CAROTID DUPLEX, BILATERAL CLINICAL INFORMATION: Bilateral carotid artery stenosis. COMPARISON: November 28, 2021 TECHNIQUE: Real-time ultrasound and Doppler techniques (integrating B-mode 2-D vascular images, Doppler spectral analysis and color-flow Doppler imaging) were utilized to interrogate the extracranial carotid arteries, the vertebral arteries and proximal subclavian arteries bilaterally. The degree of stenosis is determined by criteria similar to NASCET. FINDINGS: Right Side: 1. There is mild atherosclerotic plaque seen in the bifurcation/proximal ICA region. 2. The common carotid artery PSV proximally is 86 cm/s and distally 65 cm/s. 3. The proximal internal carotid artery velocities are 61 cm/s systolic and 17 cm/s diastolic. Midsegment: 164 cm/s. Distal segment: 222 cm/s. 4. The proximal external carotid artery PSV is 73 cm/s. 5. The vertebral artery shows antegrade flow. 6. The subclavian artery waveforms are triphasic.. ICA/CC ratio: 0.71. Left Side: 1. There is mild atherosclerotic plaque seen in the bifurcation/proximal ICA region. 2. The common carotid artery PSV proximally is 92 cm/s and distally 78 cm/s. 3. The proximal internal carotid artery velocities are 76 cm/s systolic and 19 cm/s diastolic. The midsegment: 133 cm/s. The distal segment: 128 cm/s. 4. The proximal external carotid artery PSV is 89 cm/s. 5. The vertebral artery shows antegrade flow. 6. The subclavian artery waveforms are triphasic.. ICA/CC ratio: 0.83. US/US carotid duplex BI IMPRESSION: 1. RIGHT: Consider 50-79% stenosis by ultrasound criteria according to the peak systolic velocities mid and distal segments of the right ICA 2. LEFT: 0-49% stenosis by ultrasound criteria. Electronically signed by: Philip Smith MD 11/20/2024 03:46 PM EDT
--- OUTSIDE RECORDS SUMMARY | 2024-11-20 14:46 | XMS_ITS | Encounter Summary ---
Author Organization [facility] Address [address] [place] [address] Care Team Providers Care Boiler House Inspector Name Role Phone Dean Jackson MD Primary Care Provider Unavail Cielo Dickinson APRN Primary Care Provider Unav ailable Reason for Visit * Reason Onset Date Comments Information Needed 04/18/2012 Encounter Details Date Type Department Care Team Description 04/18/2012 Telephone Adult Medicine [facility] [address] [place] [address] Dean Jackson MD Information Needed Social History Tobacco Use Types Packs/Day Years Used Date Smoking Tobacco: Never Smokeless Tobacco: Never Alcohol Use Standard Drinks/Week Comments No 0 (1 standard drink = 0.6 oz pur e alcohol) Sex Assigned at Date Recorded Not on file documented as of this encounter Miscellaneous Notes * Telephone Encounter - Obdulia Melgoza L.P.N. - 04/18/2012 4:55 PM EST Pt was diagnosed with anxiety and given lorazepam / will hold off till pending appt 05/09/12 * Telephone Encounter - Katie Hawkins L.P.NMichael - 04/18/2012 4:44 PM EST Please note below was paper work from douglas recieved * Telephone Encounter - Carolann Miller - 04/18/2012 3:56 PM EST Reason for call back: See previous msg, asking if dr jackson received her e/r report from [facility]? Seen today for chest pressure and tightness left arm? Caller offered to speak with the nurse for assistance: YES Response: Patient offered to speak with nurse for assistance and patient agreed. Message forwarded to nurse. documented in this encounter Plan of Treatment Not on file documented as of this encounter Visit Diagnoses Not on filedocumented in this encounter Care Teams Boiler House Inspector Relationship Specialty Start Date End Date Dean Jackson MD PCP - General 12/21/00 12/29/19 Cielo Adrian APRN PCP - General Internal Medicine 12/30/19 documented as of this encounter
--- OUTSIDE RECORDS SUMMARY | 2024-11-20 14:46 | XMS_ITS | Clinical Summary ---
Author Organization [facility] Address [address] [place] [address] Phone Care Team Providers Care Grinder Gear Name Role Phone Leslee Torres MD Primary Care Provider [phone] Surgical History Surgery Date Site/Laterality Comments BREAST SURGERY 1992 Left PROCEDURE: [place] UNLISTED PROCEDURE BREAST; COMMENT: left lumpectomy BREAST [...] (World Health Organization Fracture Risk Assessment) [facility] Department of Internal Medicine recommends using National [...] alternative screening schedule based on cortney Raymundo., [facility] May 04, 2011 for patients [...] (World Health Organization Fracture Risk Assessment) [facility] Department of Internal Medicine recommendsusing National Osteoporosis [...] to Health Maintenance [place] - [place] [facility] Care Teams Grinder Gear Relationship Specialty Start Date End Date Leslee Torres MD [address] [place] [address] , [facility] [address] [facility] Physician Associ D/B/A: [facility]ef[facility] In Internal Medicine [place] PCP - General Internal Medicine 02/03/24
== END 2024-11-20 14:46 | disposition home or self-care (01) ==
LOC: HO.US 14:45
PROVIDERS: PCP Internal Medicine; Visit Provider Internal Medicine Cardiovascular Disease
DX: I65.23 Occlusion and stenosis of bilateral carotid arteries (principal)
CPT/HCPCS: 93880

== ENCOUNTER → 2024-11-20 14:47 | Outpatient (BNV) | payer OTHER, SELFPAY | PROVIDERS: PCP Internal Medicine; Visit Provider Radiology Diagnostic Radiology | DX: I65.23 Occlusion and stenosis of bilateral carotid arteries (principal) | CPT/HCPCS: 93880 ==

== ENCOUNTER 2025-01-29 13:16 | Outpatient (AMB) | payer OTHER, SELFPAY ==
--- NOTE | 2025-01-29 13:24 | A.OFFVIS_ITS ---
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 Was last seen in office for carotid stenosis 12/01/2021, was PRN at the time. Pt states has some unsteadiness on her feet. 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 The patient had an ultrasound in 2021, which indicated some stenosis on the right side, but not significant enough to warrant surgical intervention. The right carotid artery showed a slight increase in stenosis, but it remains below the threshold for surgical consideration. The patient reports experiencing pulsatile tinnitus, characterized by a pounding sensation in the neck and ear, particularly at night. She has learned to manage this by adjusting her sleeping position to keep her neck straight, which has alleviated the symptoms. The condition is identified as pulsatile tinnitus, often related to ear issues rather than blood flow problems. She now presents for follow-up with carotid testing. She is being maintained on aspirin and is questioning use of a statin. [facility] Medical History SVT (supraventricular tachycardia) Encounter for Medicare annual wellness exam Migraine headache GERD (gastroesophageal reflux disease) Basal cell carcinoma FHx: mastectomy Breast cancer History of palpitations Surgical History Basal cell carcinoma (BCC) in situ of skin History of cataract surgery H/O mastectomy Family History Father No problems noted. Mother Cancer Social History Housing: House Alcohol intake: never Patient Tobacco Use Status: Never used Tobacco e-Cigarette/Vaping Use: Never Used Second Hand Smoke Exposure: No service: No Current occupational status: retired Cognitive needs: No Hearing needs: Yes Vision needs: Yes Review of Systems Const All systems reviewed & are unremarkable except as noted in HPI and below Reports no additional complaints ENT Reports Normal hearing present Card Denies chest pain, Denies chest pain at rest, Denies chest pain with activity and Denies pedal edema Resp Denies cough GI Denies abdominal pain Musc Denies abnormal gait, Denies muscle cramps and Denies radiating pain into limb Skin/Breast Denies skin ulcer and Denies wounds Neuro Reports Normal hearing present and Denies abnormal gait Psych Reports no additional complaints Physical Exam Vital Signs: BMI result Body Mass Index 24.4 Const General: cooperative, healthy appearing and comfortable Orientation/consciousness: oriented to person, oriented to place and oriented to time HEENT Head: Yes normal to inspection Neck Neck: Yes normal visual inspection Carotids: no bruits Chest Chest palpation & inspection: normal inspection of the chest Resp Effort & Inspection: normal respiratory effort and able to speak in complete sentences Auscultation: clear to auscultation bilaterally, no crackles, no rales, no rhonchi and no wheezes Cardio Rate: regular rate Rhythm: regular rhythm Heart sounds: S1 normal heart sound present and S2 normal heart sound present Bruits: no carotid bruits Peripheral pulses: Peripheral pulses 2+ throughout GI Inspection: Yes normal to inspection Skin Wounds: no wounds Hair: normal Neuro General: oriented to person, oriented to place and oriented to time Cranial nerves: Yes CN's II-XII intact bilaterally and Yes Normal hearing present Cognition (Neuro): normal cognition Motor exam (neuro): 5/5 motor strength present throughout Extrem Other: venous exam: No significant superficial varicosities or spider telangiectasias, minimal edema General: No clubbing, No cyanosis and No edema Psych Appearance: grossly normal Mental Status: mental status grossly normal Speech and movement: Normal speech and movement present Results Reviewed Results Reviewed: Carotid testing dated 11/20/2024 demonstrates right side 50-79% stenosis with a peak systolic of 222 left side 0-49% stenosis written report and images were reviewed. Assessment & Plan Assessment & Plan (1) Bilateral carotid artery stenosis: Code(s): I65.23 - Occlusion and stenosis of bilateral carotid arteries Category: Medical Plan: In short patient has asymptomatic carotid disease. We have reviewed signs and symptoms of a stroke. We also discussed risk factor modification inclusive a healthy diet low in cholesterol. The patient will follow up with us with surveillance ultrasound of the carotids 1 year. Should there be any changes or signs or symptoms of a stroke we will be happy to see them back sooner. Thank you for allowing us to participate in this patient's care. If there are any questions or concerns please do not hesitate to contact us. This patient has atherosclerotic cardiovascular disease and may benefit from a statin based on the 2019 ACC and aha guidelines. Once on a statin would monitor LFTs and renal function. Orders: Orders US carotid duplex BI 1 Year I65.23 - Occlusion and stenosis of bilateral carotid arteries Coding Level of Care Code Est Pt Level 4 (17532) Diagnoses Bilateral carotid artery stenosis I65.23
[2025-01-29 13:25] VITALS: BMI 24.4
--- OUTSIDE RECORDS SUMMARY | 2025-01-29 16:36 | XMS_ITS | Clinical Summary ---
Author Organization [facility] Address [address] [place] [address] Phone Care Team Providers Care Marine Equipment Engineer Name Role Phone Leslee Torres MD Primary Care Provider [phone] Surgical History Surgery Date Site/Laterality Comments BREAST SURGERY 1992 Left PROCEDURE: [place] UNLISTED PROCEDURE BREAST; COMMENT: left lumpectomy BREAST [...] (World Health Organization Fracture Risk Assessment) [facility] Department of Internal Medicine recommends using [...] alternative screening schedule based on cortney Raymundo., [facility] May 04, 2011 for patients with osteopenia [...] (World Health Organization Fracture Risk Assessment) [facility] Department of Internal Medicine recommendsusing National [...] to Health Maintenance Insurance [place] - [place] [facility] Care Teams Marine Equipment Engineer Relationship Specialty Start Date End Date Leslee Torres MD [address] [place] [address] , [facility] [address] [facility] Physician Associ D/B/A: Estefania Worrell[facility]iscot In Internal Medicine [place] PCP - General Internal Medicine 02/03/24
== END 2025-01-29 13:52 | disposition home or self-care (01) ==
LOC: HO.HVS 13:16
PROVIDERS: PCP Internal Medicine; Visit Provider Surgery Vascular Surgery
DX: I65.23 Occlusion and stenosis of bilateral carotid arteries (principal)
CPT/HCPCS: 99214

== ENCOUNTER → 2025-01-29 13:16 | Outpatient (BNVA) | payer OTHER, SELFPAY | PROVIDERS: PCP Internal Medicine; Visit Provider Surgery Vascular Surgery | DX: I65.23 Occlusion and stenosis of bilateral carotid arteries (principal) | CPT/HCPCS: 99212 ==

== ENCOUNTER 2025-02-12 13:21 | Outpatient (AMB) | payer OTHER, SELFPAY ==
[2025-02-12 13:27] VITALS: BP 130/62; PULSE 68; TEMP 36.1; O2SAT 98; BMI 24.7
--- NOTE | 2025-02-12 13:27 | MHC.PC.OV ---
Vital Signs 02/12/25 13:27 Height 5 ft 3 in Weight 139 lb 8 oz BMI 24.7 BP 130/62 Blood Pressure Location Rt brachial Position Sitting Pulse 68 Pulse Source Pulse Oximeter Temp 97.0 F Temp Source Temporal Artery Scan Pulse Oximetry (%) 98 Oxygen Delivery Method Room Air Intake Visit Reasons: GABRIEL Dr Britt Allergies No Known Allergies Allergy (Verified 02/12/25 13:28) Medication List - Last Reconciled 02/12/25 by Hailee Clark MD aspirin (Adult Aspirin Regimen) 81 mg PO DAILY calcium carbonate-vitamin D3 600 mg-10 mcg (400 unit) 1 tab PO DAILY 90 days citalopram 10 mg PO DAILY 90 days lorazepam 0.5 mg PO BID PRN 30 days sumatriptan succinate 50 mg PO ONCE PRN 30 days Tobacco use date assessed: 02/12/25 Fall risk assessment: No Falls in past year Last assessed Fall Risk: 02/12/25 Dental Screening Dental Screen Date: 02/12/25 Did you have a dental visit in the last 12 months?: Yes Did you have a dental problem in the last 6 months where you did not have access to dental care?: No Was dental information given to patient?: Patient has dentist [facility] Medical History (Updated 02/12/25 @ 14:09 by Hailee Clark MD) Screening for diabetes mellitus (DM) Bilateral carotid artery stenosis History of palpitations SVT (supraventricular tachycardia) Encounter for Medicare annual wellness exam Migraine headache GERD (gastroesophageal reflux disease) Basal cell carcinoma FHx: mastectomy Breast cancer Surgical History Basal cell carcinoma (BCC) in situ of skin History of cataract surgery H/O mastectomy Family History Father No problems noted. Mother Cancer Social History Housing: House Alcohol intake: never Patient Tobacco Use Status: Never used Tobacco e-Cigarette/Vaping Use: Never Used Second Hand Smoke Exposure: No service: No Current occupational status: retired Cognitive needs: No Hearing needs: Yes Vision needs: Yes Questionnaire PHQ-9 Over the last 2 weeks, how often have you been bothered by any of the following problems? 1. Little interest or pleasure in doing things: several days 2. Feeling down, depressed, or hopeless: not at all 3. Trouble falling or staying asleep, or sleeping too much: several days 4. Feeling tired or having little energy: more than half the days 5. Poor appetite or overeating: not at all 6. Feeling bad about yourself - or that you are a failure or have let yourself or your family down: several days 7. Trouble concentrating on things, such as reading the newspaper or watching television: several days 8. Moving or speaking so slowly that other people could have noticed. Or the opposite - being so fidgety or restless that you have been moving around a lot more than usual: several days 9. Thoughts that you would be better off or of hurting yourself in some way: not at all Total score: 7 Depression Screening Interpretation: Positive Depression Screening Follow-up: Existing condition, In treatment and Follow-up Visit Requested Depression Screening Done: Yes Source: Developed by Drs. Reed Elmore, Courtney Rodriguez, Panda Clayton and colleagues, with an educational shaniqua from [employer]. Thrive Questionnaire Date Thrive assessed: 09/24/24 I am a: Patient What is your living situation today?: I have a steady place to live Within the past 12 months, did the food you bought not last and you didn't have the money to get more?: Never true Within the past 12 months, did you worry whether your food would run out before you got money to buy more?: Never true Do you have trouble paying for medicines?: No Do you have trouble getting transportation to medical appointments?: No Do you have trouble paying your heating and electricity bill?: No Do you have trouble taking care of your child, family member or friend?: No Do you have trouble with day-to-day activities such as bathing, preparing meals, shopping, managing finances, etc.?: No Are you currently unemployed and looking for a job?: No Are you interested in more education?: No Please select the resources that you would like help with: None Currently or been in a relationship where the following occur: No concerns reported THRIVE Score: 0 AUDIT C Alcohol Use Questionnaire (AUDIT-C) 1. How often do you have a drink containing alcohol?: Never 3. How often do you have six or more drinks on one occasion?: Never Total Score: 0 SINDY-7 AMB Questionnaire SINDY-7 Date SINDY - 7 assessed: 10/01/24 Feeling nervous, anxious, or on edge: 2 = More than half the days Not being able to stop or control worryin = Not at all Worrying too much about different things: 1 = Several days Trouble relaxin = Not at all Being so restless that it is hard to sit still: 0 = Not at all Becoming easily annoyed or irritable: 1 = Several days Feeling afraid as if something awful might happen: 1 = Several days Total SINDY-7 score (0-4 normal; 5-9 mild; 10-14 moderate; 15-21 severe): 5 Source: Developed by Drs. Reed Elmore, Courtney Rodriguez, Panda Clayton and colleagues, with an educational shaniqua from [employer]. Physical exam (Primary Care) Vital Signs: Last Vital Signs Temp 97.0 F 02/12/25 13:27 Pulse 68 02/12/25 13:27 BP 130/62 02/12/25 13:27 Pulse Ox 98 02/12/25 13:27 Oxygen Delivery Method Room Air 02/12/25 13:27 BMI result Body Mass Index 24.7 Tobacco/Smoking Status: Tobacco use Status Tobacco use date assessed 02/12/25 02/12/25 13:29 Patient Tobacco Use Status Never used Tobacco 02/12/25 13:29 Tobacco use type 02/20/22 10:26 e-Cigarette/Vaping Use Never Used 02/12/25 13:29 PHQ-9: PHQ-9 Score PHQ-9: Total score 7 02/12/25 16:52 Depression Screening Interpretation: Positive Depression Screening Follow-up: Existing condition, In treatment and Follow-up Visit Requested Thrive Assessment: Date of Thrive Assessment Date Thrive assessed 09/24/24 02/12/25 13:29 Currently or been in a relationship where the following occur: No concerns reported Const General: alert; No acute distress Eyes Conjunctivae: conjunctivae normal Resp Auscultation: clear to auscultation bilaterally Cardio Rate: regular rate Rhythm: regular rhythm GI Inspection: Yes normal to inspection Extrem General: Yes normal to inspection and No edema Coding Level of Care Code Est Pt Level 4 (52102) Complex EM visit Add On G2211 Diagnoses Stenosis of right carotid artery I65.21 Gastroesophageal reflux disease without esophagitis K21.9 Esophagitis presence: without esophagitis SINDY (generalized anxiety disorder) F41.1 Hypercholesterolemia E78.00 History of breast cancer Z85.3 Impacted cerumen of right ear H61.21 Assessment & Plan Assessment & Plan (1) Stenosis of right carotid artery: Comment: November 2024 right 50-79% left up to 49% Code(s): I65.21 - Occlusion and stenosis of right carotid artery Category: Medical Plan: Patient has met up with vascular and will continue to monitor with ultrasound of the carotids (2) GERD (gastroesophageal reflux disease): Code(s): K21.9 - Gastro-esophageal reflux disease without esophagitis Category: Medical Qualifiers: Esophagitis presence: without esophagitis Qualified Code(s): K21.9 - Gastro-esophageal reflux disease without esophagitis Plan: Avoid the foods that causes that usually spicy foods, tomato products, juices, coffee, soda and foods that your sensitive to. After eating do not lie down, allow 3-4 hours before in lie down. And keep the head of bed above 30 degrees to avoid the acid from going up. (3) SINDY (generalized anxiety disorder): Comment: private counsellor once a month Code(s): F41.1 - Generalized anxiety disorder Category: Medical Plan: Continue with present medication of citalopram and lorazepam and discussed about counseling and therapy (4) Hypercholesterolemia: Code(s): E78.00 - Pure hypercholesterolemia, unspecified Category: Medical (5) History of breast cancer: Comment: 1992 L partial mastectomy [facility] Code(s): Z85.3 - Personal history of malignant neoplasm of breast Category: Medical (6) Impacted cerumen of right ear: Code(s): H61.21 - Impacted cerumen, right ear Category: Medical Plan: schedule for ear irrigation Plan History of Present Illness The patient is an 84-year-old female presenting for her first visit to [facility]. Her medical history is significant for generalized anxiety disorder, GERD, migraines, bilateral carotid artery stenosis, and atherosclerotic cardiovascular disease. The patient has a history of bilateral carotid artery stenosis and is followed by vascular surgery. A carotid ultrasound in November 2024 showed 50-79% stenosis on the right and 0-49% stenosis on the left, which will be monitored with a repeat ultrasound in one year. Her last LDL cholesterol was 108 mg/dL in September 2024, and a previous result was 106 mg/dL. She was seen by cardiology on October 20 and was noted to have declined pharmacotherapy for cholesterol at that time. The patient reports following a healthy diet, avoiding fast foods and using applesauce instead of oils in her baking. She reports intermittent palpitations that have woken her from sleep with a pounding sensation. A Holter monitor on October 14 showed normal sinus rhythm with no significant pauses and premature atrial contractions (0.2%). For generalized anxiety, she takes citalopram 10 mg daily and lorazepam as needed, reporting that she does not use it often. She sees a counselor once a month. For migraines, she has sumatriptan for as-needed use but states she does not get migraines as frequently as she used to. The patient takes aspirin 81 mg, calcium with vitamin D, and does not take any other supplements. The patient has a history of a partial mastectomy of the left breast in 1992 for breast cancer and has been clear since. She has osteopenia, diagnosed via bone density scan in October 2024. She walks every day for exercise. Recent blood work from September 2024 showed mild leukopenia, which has been chronic and stable, and mild hyponatremia. Renal function, blood sugar, liver function, B12, vitamin D, folic acid, and thyroid levels were all within normal limits. Health Maintenance The patient is establishing care as a new patient. A request for a screening mammogram at [facility] will be provided, as she is due in February 2024. An annual wellness visit will be scheduled in the future. Social History - Sees a counselor once a month for anxiety. - Activity: Walks every day. - Diet: Reports she does not eat fast foods, donuts, or similar items. - Diet: Bakes her own food and uses applesauce instead of oil. - Diet: Patient admits to eating eggs. - Caffeine: Reports she no longer uses caffeine. Review of Systems - General: Denies fever. - Reports feeling very dry recently. - Cardiovascular: Reports intermittent palpitations, which have woken her from sleep with a pounding sensation, often associated with anxiety. - Denies chest pain or passing out. - Respiratory: Denies cough or shortness of breath. - GI: Denies stomach ulcers. - Neurological: Reports gradual onset of unsteadiness when walking, which she describes as wobbly legs . - Denies seizures or weakness causing her legs to give way. - HEENT: Reports vision is fine with new glasses. - Reports hearing problems, for which she uses hearing aids. - Denies congestion. - Musculoskeletal: No pain reported with walking. - Psychiatric: Reports anxiety, which she feels is a trigger for palpitations. Physical Exam General: Cooperative, healthy appearing, comfortable, no acute distress and well developed Orientation: Patient oriented x3 Limitations: No limitations Head: Normal to inspection Ears: Hearing aids used, right ear plugged up Nose: Normal external nose present Face and sinus: Normal facial exam Eyes: Appearance normal, both eyes and all related structures Neck: Normal visual inspection and Yes full ROM Respiratory: Normal respiratory effort and able to speak in complete sentences. Clear to auscultation bilaterally Cardiovascular: Regular rate and rhythm. Normal S1 and S2 GI: Normal to inspection. Soft to palpation and nontender Skin: No rashes or lesions noted Neuro: Patient oriented x3 Extremities: Normal to inspection, patient reports unsteadiness in walking, no pain noted Results - Holter monitor (October 14): Normal sinus rhythm, no significant pauses, premature atrial contractions noted (0.2%). - Labs (September 2024): - CBC: Mild leukopenia with an otherwise normal blood count. - CMP: Mild hyponatremia. - Renal function, blood sugar, and liver numbers are good. - Lipid Panel: LDL of 108 mg/dL. - B12, vitamin D, folic acid, thyroid: All within normal limits. - Carotid Ultrasound (November 2024): Right carotid artery stenosis of 50-79% and left carotid artery stenosis of 0-49%. - Bone Density (October 2024): Revealed osteopenia. Plan Patient was informed and verbally consented to the use of an ambient scribe for clinic note documentation during this visit. 1. Bilateral Carotid Artery Stenosis / Atherosclerotic Cardiovascular Disease The patient has known atherosclerotic cardiovascular disease with bilateral carotid artery stenosis, more significant on the right (50-79%). She has met with a vascular specialist and will continue to monitor the condition with a repeat carotid ultrasound in one year. The importance of aggressive risk factor modification, including blood pressure control, cholesterol management, weight management, and avoiding diabetes, was discussed to prevent stroke and heart attack. 2. Hyperlipidemia The patient's LDL cholesterol is elevated at 108 mg/dL, which is above the goal of less than 70 mg/dL for patients with atherosclerotic cardiovascular disease. After discussing the recommendations from cardiology and vascular surgery, and the risks and benefits, the patient agreed to start pharmacotherapy. A prescription for low-dose simvastatin to be taken at night was sent to her pharmacy. The potential side effect of muscle aches was reviewed, and the patient was instructed to stop the medication and report if this occurs. Plan to recheck cholesterol in three months. 3. Generalized Anxiety Disorder The patient is managing her anxiety with citalopram 10 mg daily and lorazepam as needed. She also sees a counselor monthly. Refills for citalopram and lorazepam will be provided. 4. Gait Instability The patient reports a gradual onset of unsteadiness when walking. She was advised to change positions slowly to avoid dizziness. Examination revealed cerumen impaction in the right ear, which may be contributing to her balance issues. She will be scheduled for an ear cleaning. The option of physical therapy for balance was discussed, and the patient will monitor her symptoms. 5. Osteopenia The patient has a known diagnosis of osteopenia. She will continue taking her current calcium and vitamin D supplements. The importance of continued exercise, such as her daily walks, and fall prevention was emphasized. 6. Cerumen Impaction, Right Ear The right ear was found to be occluded with cerumen on examination. The patient will be scheduled for an appointment for ear cleaning/irrigation. Discussion Notes As this was our first visit, I reviewed the patient's extensive medical history. I discussed the significance of her bilateral carotid artery stenosis and atherosclerotic cardiovascular disease, emphasizing that this increases her risk for stroke and heart attack. I explained that due to this risk, her LDL cholesterol goal is less than 70 mg/dL, and her current level of 108 mg/dL is too high. I recommended starting a statin medication to lower her cholesterol, explaining that this has been shown to reduce the risk of heart attacks and strokes. The patient agreed to this plan. I educated her on the primary side effect to watch for, which is muscle aches, and instructed her to stop the medication and contact me if this occurs. We discussed her complaint of unsteadiness. My examination revealed that her right ear is plugged with earwax, which could be a contributing factor. I informed her that we would schedule a follow-up visit for an ear cleaning. I also advised her to be careful when changing positions to prevent dizziness. I reviewed her chronic, stable leukopenia and mild hyponatremia, explaining that these do not require invasive workup at this time and will be monitored. We addressed her health maintenance needs, and I will place an order for her screening mammogram. Patient Instructions - You will be started on a new cholesterol medication, simvastatin. - Take one pill at nighttime. - If you develop any new muscle aches after starting the simvastatin, stop taking it and call our office. - We will recheck your cholesterol with a blood test in three months. - When you are lying down or bending over, stand up slowly to prevent feeling unsteady or dizzy. - We will schedule you for an appointment to have your right ear cleaned. - Please do not use Q-tips in your ears. - Continue your daily walks and be careful to avoid falls. - Continue taking your calcium and vitamin D supplements. - An order will be placed for your screening mammogram. - Please let the front window cashier know that you get this done at [facility]. - Avoid caffeine, as it can make your heart palpitations worse. - Refills for your citalopram and lorazepam have been sent to your pharmacy. Orders: Orders MM tomosynthesis screening BI Today Z12.31 - Encounter for screening mammogram for malignant neoplasm of breast, Z85.3 - Personal history of malignant neoplasm of breast Lipid Panel 3 Months E78.00 - Pure hypercholesterolemia, unspecified Comprehensive Met. Panel 3 Months E78.00 - Pure hypercholesterolemia, unspecified Medications: New simvastatin 5 mg PO BEDTIME 30 tabs 3RF E78.00 - Pure hypercholesterolemia, unspecified Refilled lorazepam 0.5 mg PO BID PRN 20 tabs 0RF anxiety 30 days F41.1 - Generalized anxiety disorder citalopram 10 mg PO DAILY 90 tabs 1RF 90 days Z85.3 - Personal history of malignant neoplasm of breast
--- OUTSIDE RECORDS SUMMARY | 2025-02-12 16:19 | XMS_ITS | Clinical Summary ---
Author Organization [facility] Address [address] [place] [address] Phone Care Team Providers Care Cotton Seed Culler Name Role Phone Leslee Torres MD Primary Care Provider [phone] Surgical History Surgery Date Site/Laterality Comments BREAST SURGERY 1992 Left PROCEDURE: MO UNLISTED PROCEDURE BREAST; COMMENT: left lumpectomy BREAST [...] (World Health Organization Fracture Risk Assessment) [facility] Department of Internal Medicine recommends using National [...] (World Health Organization Fracture Risk Assessment) [facility] Department of Internal Medicine recommendsusing National Osteoporosis [...] to Health Maintenance Insurance MEDICAID - [place] [facility] Care Teams Cotton Seed Culler Relationship Specialty Start Date End Date Leslee Torres MD [address] [place] [address] , [facility] [address] [facility] D[facility]A: [facility] [place] PCP - General Internal Medicine 02/03/24
== END 2025-02-12 14:22 | disposition home or self-care (01) ==
LOC: HO.HMCH 13:22
PROVIDERS: PCP Internal Medicine; Visit Provider Internal Medicine
DX: I65.21 Occlusion and stenosis of right carotid artery (principal); K21.9 Gastro-esophageal reflux disease without esophagitis; F41.1 Generalized anxiety disorder; E78.00 Pure hypercholesterolemia, unspecified; Z85.3 Personal history of malignant neoplasm of breast; H61.21 Impacted cerumen, right ear

== ENCOUNTER → 2025-02-12 13:21 | Outpatient (BNVA) | payer OTHER, SELFPAY | PROVIDERS: PCP Internal Medicine; Visit Provider Internal Medicine | DX: I65.21 Occlusion and stenosis of right carotid artery (principal); K21.9 Gastro-esophageal reflux disease without esophagitis; F41.1 Generalized anxiety disorder; E78.00 Pure hypercholesterolemia, unspecified; Z85.3 Personal history of malignant neoplasm of breast; H61.21 Impacted cerumen, right ear; R26.89 Other abnormalities of gait and mobility | CPT/HCPCS: 99212 ==

== ENCOUNTER 2025-03-05 09:24 | Outpatient (AMB) | payer OTHER, SELFPAY ==
--- NOTE | 2025-03-05 09:32 | A.OFFPC_ITS ---
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 patient tells us today she had gone for a hearing test and was informed she would have to have her ears cleaned prior to the exam. She was previously following with Dr. Donahue for routine ear cleanings but has not seen anyone since his shelter. [facility] Medical History Screening for diabetes mellitus (DM) Bilateral carotid artery stenosis History of palpitations SVT (supraventricular tachycardia) Encounter for Medicare annual wellness exam Migraine headache GERD (gastroesophageal reflux disease) Basal cell carcinoma FHx: mastectomy Breast cancer Surgical History Basal cell carcinoma (BCC) in situ of skin History of cataract surgery H/O mastectomy Family History Father No problems noted. Mother Cancer Social History Housing: House Alcohol intake: never Patient Tobacco Use Status: Never used Tobacco e-Cigarette/Vaping Use: Never Used Second Hand Smoke Exposure: No service: No Current occupational status: retired Cognitive needs: No Hearing needs: Yes Vision needs: Yes Questionnaire PHQ-9 Over the last 2 weeks, how often have you been bothered by any of the following problems? 1. Little interest or pleasure in doing things: several days 2. Feeling down, depressed, or hopeless: not at all 3. Trouble falling or staying asleep, or sleeping too much: several days 4. Feeling tired or having little energy: more than half the days 5. Poor appetite or overeating: not at all 6. Feeling bad about yourself - or that you are a failure or have let yourself or your family down: several days 7. Trouble concentrating on things, such as reading the newspaper or watching television: several days 8. Moving or speaking so slowly that other people could have noticed. Or the opposite - being so fidgety or restless that you have been moving around a lot more than usual: several days 9. Thoughts that you would be better off or of hurting yourself in some way: not at all Total score: 7 Depression Screening Interpretation: Positive Depression Screening Follow-up: Existing condition, In treatment and Follow-up Visit Requested Depression Screening Done: Yes Source: Developed by Drs. Reed Elmore, Courtney Rodriguez, Panda Clayton and colleagues, with an educational shaniqua from [employer]. Thrive Questionnaire Date Thrive assessed: 03/05/25 I am a: Patient What is your living situation today?: I have a steady place to live Within the past 12 months, did the food you bought not last and you didn't have the money to get more?: Never true Within the past 12 months, did you worry whether your food would run out before you got money to buy more?: Never true Do you have trouble paying for medicines?: No Do you have trouble getting transportation to medical appointments?: No Do you have trouble paying your heating and electricity bill?: No Do you have trouble taking care of your child, family member or friend?: No Do you have trouble with day-to-day activities such as bathing, preparing meals, shopping, managing finances, etc.?: No Are you currently unemployed and looking for a job?: No Are you interested in more education?: No Please select the resources that you would like help with: None Currently or been in a relationship where the following occur: No concerns reported THRIVE Score: 0 AUDIT C Alcohol Use Questionnaire (AUDIT-C) 1. How often do you have a drink containing alcohol?: Never 3. How often do you have six or more drinks on one occasion?: Never Total Score: 0 SINDY-7 AMB Questionnaire SINDY-7 Date SINDY - 7 assessed: 10/01/24 Feeling nervous, anxious, or on edge: 2 = More than half the days Not being able to stop or control worryin = Not at all Worrying too much about different things: 1 = Several days Trouble relaxin = Not at all Being so restless that it is hard to sit still: 0 = Not at all Becoming easily annoyed or irritable: 1 = Several days Feeling afraid as if something awful might happen: 1 = Several days Total SINDY-7 score (0-4 normal; 5-9 mild; 10-14 moderate; 15-21 severe): 5 Source: Developed by Drs. Reed Elmore, Courtney Rodriguez, Panda Clayton and colleagues, with an educational shaniqua from [employer]. Review of Systems Const Denies body aches, Denies chills and Denies fever(s) ENT Reports as per HPI Card Reports no additional complaints Resp Reports no additional complaints Physical exam (Primary Care) Vital Signs: Last Vital Signs Temp 97.3 F 03/05/25 09:33 Pulse 64 03/05/25 09:33 Resp 18 03/05/25 09:33 BP 130/70 03/05/25 09:33 Pulse Ox 99 03/05/25 09:33 Oxygen Delivery Method Room Air 03/05/25 09:33 BMI result Body Mass Index 24.2 Tobacco/Smoking Status: Tobacco use Status Tobacco use date assessed 03/05/25 03/05/25 09:34 Patient Tobacco Use Status Never used Tobacco 03/05/25 09:34 Tobacco use type 02/20/22 10:26 e-Cigarette/Vaping Use Never Used 03/05/25 09:34 PHQ-9: PHQ-9 Score PHQ-9: Total score 7 03/05/25 09:34 Depression Screening Interpretation: Positive Depression Screening Follow-up: Existing condition, In treatment and Follow-up Visit Requested Thrive Assessment: Date of Thrive Assessment Date Thrive assessed 03/05/25 03/05/25 09:34 Currently or been in a relationship where the following occur: No concerns reported Const General: cooperative, healthy appearing, comfortable and no acute distress Orientation/consciousness: patient oriented x3 HENMT Head: Yes normocephalic Ears: hearing grossly normal bilaterally, TM normal on the right, TM normal on the left, EAC's normal (left) and Abnormal EAC present excessive cerumen on the right General nose exam: Normal external nose present Neck Neck: Yes full ROM and Yes no lymphadenopathy Resp Effort & Inspection: normal respiratory effort Cardio Rate: regular rate Neuro General: patient oriented x3 Gait exam (Neuro): Normal gait present Psych Affect: normal affect Attitude: cooperative Insight: Good insight present (Psych) Judgement: Good judgement present (Psych) Coding Level of Care Code Est Pt Level 2 (23263) Diagnoses Impacted cerumen of right ear H61.21 Assessment & Plan Assessment & Plan (1) Impacted cerumen of right ear: Code(s): H61.21 - Impacted cerumen, right ear Category: Medical Plan: Cerumen was cleared using lighted curette. Patient tolerated the procedure well and TM was visualized as intact with well aerated middle ear spaces without perforation or retraction. Follow up prn for this concern. Plan This note was constructed using voice recognition software. While every effort has been made to ensure accuracy and mgmt consultant, still areas may have been included sometimes these areas may affect the content or meeting of the given symptoms. Total time spent caring for the patient today was 15 minutes. This includes time spent before the visit reviewing the chart, time spent during the visit, and time spent after the visit and documentation.
[2025-03-05 09:33] VITALS: BP 130/70; PULSE 64; RESP 18; TEMP 36.3; O2SAT 99; BMI 24.2
== END 2025-03-05 10:08 | disposition home or self-care (01) ==
LOC: HO.HMCH 09:25
PROVIDERS: PCP Internal Medicine
DX: H61.21 Impacted cerumen, right ear (principal)

== ENCOUNTER → 2025-03-05 09:24 | Outpatient (BNVA) | payer OTHER, SELFPAY | PROVIDERS: PCP Internal Medicine | DX: H61.21 Impacted cerumen, right ear (principal) | CPT/HCPCS: 99212 ==